=== PATIENT | male | born 1960 | race Caucasian/White ===

== ENCOUNTER → 2016-11-22 | Day surgery (SDC) | payer OTHER ==
[2016-11-08 15:26] VITALS: BMI 25.0
[~2016-11-22] VITALS: Ht 180.3 cm; Wt 86.0 kg
[~2016-11-22] MED LIST: ALLO300T2 PO; ATROPINE SULFATE 0.1 MG/ML 5ML SYR IV PRN; BUPIVACAINE/EPINEPHRINE 0.5% MPF 1:200,000 30 ML VIAL ONE; CEFAZOLIN 2000 MG/60 ML D5W IV SCH; CHOL1000 PO; DEXAMETHASONE SOD INJ 4 MG/ML VIAL ONE; DPRSCR15 TOP; DexMEDEtomidine HCL 100 MCG/ML 2ML VIAL IV ONE; EpHEDrine SULFATE 50MG/5ML SYR ONE; EpHEDrine SULFATE INJ 50 MG/ML AMP IV PRN; FENTANYL CITRATE INJ 50 MCG/1 ML 2 ML VIAL ONE; FLUMAZENIL 0.1 MG/1 ML 10 ML VIAL IV PRN; GABA800T PO; GLYCOPYRROLATE INJ 0.2 MG/ML VIAL ONE; KETOROLAC TROMETHAMINE 30 MG/ML VIAL IV. PRN; LABETALOL HCL IV 5 MG/ML 20ML IV PRN; LACT10SO17; LACTATED RINGER'S 1000ML 1,000 ML IV SCH; LIDOCAINE HCL 2% 2 ML VIAL (20MG/ML) ONE; LISI-725 PO; MEPERIDINE HCL 25 MG/ML CARP IV PRN; METOPROLOL TARTRATE 1 MG/ML VIAL ONE; MIDAZOLAM HCL 1 MG/ML 2ML VIAL ONE; NALOXONE HCL 0.4 MG/1 ML VIAL/CARP IV PRN; NEOSTIGMINE METHYLSULFATE 5 MG/5 ML SYR ONE; NURSING VERBAL MED ORDER ONE; ONDANSETRON INJ 2 MG/ML 2 ML VIAL IV PRN; ONDANSETRON INJ 2 MG/ML 2 ML VIAL ONE; OXYCODONE/ACETAMINOPHEN 5-325 TAB PO PRN; PARO1TAB27 PO; PHENYLEPHRINE 100MCG/ML 5ML SYR IV PRN; PRAV80TA2 PO; PRLSR20 PO; PROPOFOL IV EMULSION 10 MG/ML 20 ML VIAL IV ONE; ROCURONIUM BROMIDE 10 MG/ML 5 ML VIAL ONE; SODIUM CHLORIDE 0.9% 1000ML 1,000 ML IV SCH; SUCCINYLCHOLINE 100MG/5ML SYR IV ONE; TRMO2580 TOP
[2016-11-22 06:14] VITALS: BP 127/71; PULSE 67; TEMP 36.8; O2SAT 99; Ht 180.3 cm; Wt 86.0 kg
[2016-11-22 06:36] LABS: HEMATOCRIT 34.8 % (42-52); MEAN CELL VOLUME 102.1 fL (80-100); MEAN CORPUSCULAR HEMOGLOBIN 36.1 pg (25-34); MEAN CORPUSCULAR HGB CONC 35.3 g/dl (32-36); MEAN PLATELET VOLUME 10.6 fL (7.4-10.4); PLATELET COUNT 45 K/uL (130-400); PLT ESTIMATE SIGNIFIC DECREASED; RED BLOOD COUNT 3.41 M/uL (4.7-6.1); WHITE BLOOD COUNT 4.79 K/uL (4.8-10.8)
--- NOTE | 2016-11-22 07:03 | History and Physical ---
History & Physical Date Nov 22, 2016. Chief Complaint right breast swelling/tenderness. US/mammo show abnormality and bx rec History of Present Illness The patient is a 56 year old male with complaints of Additional History Hepatic Disease: No Endocrine Disorder: No Kidney Disease: No Hypertension: No Heart Disease: No Bleeding Tendencies: No Infectious Diseases: No Allergies Coded Allergies: Codeine (Verified Allergy, Unknown, Unknown, 11/22/16) Ibuprofen (Verified Allergy, Unknown, Unknown, 11/22/16) Tetanus Toxoid, Adsorbed (Verified Allergy, Unknown, Unknown, 11/22/16) Home Medications Scheduled Betamethasone Dip (Betamethasone Dipropionat), 1 APPLN TOP BID Gabapentin (Neurontin), 800 MG PO TID Lactulose (Chronulac), 15 ML DAILY Paroxetine (Paxil), 20 MG PO DAILY Scheduled PRN Triamcinolone Acetonide (Topic (Triamcinolone Acet 0.025%), 1 APPLN TOP DAILY PRN for Affected Skin Folds Physical Examination Skin: warm/dry Eyes: normal inspection, EOMI ENT: normal ENT inspection Head: normocephalic Neck: supple Respiratory/Chest: no respiratory distress Abdomen / GI: non tender Extremities: normal inspection Neurologic/Psych: alert, oriented x 3 Addiitonal Comments: tender nodule under right nipple. no drainage. no erythema Diagnosis gynecomastia-symptomatic Plan of Treatment discussed options/risks. rather than just bx will perform subcutaneous mastectomy. discussed risks. questions answered. ok to proceed
--- NOTE | 2016-11-22 07:06 | Discharge Instructions ---
Discharge Instructions Date of Service Nov 22, 2016. Admission Reason for Admission: Right Breast Mass Discharge Discharge Diagnosis / Problem: gynecomastia Discharge Goals Goal(s): Decrease discomfort, Diagnostic testing Activity Recommendations Activity Limitations: resume your previous activity Shower/Bathe: tomorrow . Instructions / Follow-Up Instructions / Follow-Up f/u dr. wolfe in 2 weeks. [phone] may use tylenol or ibuprofen for discomfort Current Hospital Diet Patient's current hospital diet: Discharge Diet Recommended Diet: Regular Diet Procedures Procedures Performed: right subcutaneous mastectomy Pending Studies Studies pending at discharge: yes List of pending studies: path report Medical Emergencies . Who to Call and When: Medical Emergencies: If at any time you feel your situation is an emergency, please call 911 immediately. . Non-Emergent Contact Non-Emergency issues call your: Primary Care Provider, Surgeon Call Non-Emergent contact if: temperature is above 101, wound has increased drainage, wound has increased redness, wound has increased pain . "Provider Documentation" section prepared by Juan Wolfe. VTE Core Measure Inpt VTE Proph given/why not?: SCD's
--- NOTE | 2016-11-22 07:59 | [facility] Operative Report ---
Operative Report Operative Date Nov 22, 2016. Pre-Operative Diagnosis Right breast mass Post-Operative Diagnosis same Procedure(s) Performed right subcutaneous mastectomy Surgeon Dr Wolfe Radiagraph Operator Surgeon(s) Rico Kirkland PA-C Estimated Blood Loss 5cc Findings small post areolar nodule, otherwise normal tissue Specimens A: Right subcutaneous breat tissue Anesthesia general Complication(s) None Disposition Recovery Room / PACU I attest to the content of the Intraoperative Record and any orders documented therein. Any exceptions are noted below.
--- NOTE | 2016-11-22 08:13 | OPERATIVE REPORT ---
DATE OF OPERATION: 11/22/2016 PREOPERATIVE DIAGNOSIS: Right breast pain and tenderness and abnormal ultrasound, suspect gynecomastia. POSTOPERATIVE DIAGNOSIS: Same. PROCEDURE: Right subcutaneous mastectomy. SURGEON: Dr. Wolfe. LAWNMOWER REPAIR MECHANIC: Bill Kirkland PA-C. ESTIMATED BLOOD LOSS: Approximately 5 mL COMPLICATIONS: No immediate. ANESTHESIA: General. The patient tolerated the procedure well. OPERATIVE NOTE: After informed consent was obtained, the patient was taken to the operating suite, placed in supine position. After successful intubation, the right breast area was sterilely prepped and draped in usual fashion. We began with a curvilinear infra-areolar incision. We carried this down through the soft tissue using electrocautery. We carried this down to the pectoralis muscle. We then made a skin flap underneath the nipple superiorly, trying to keep the flap rather large to prevent ischemia. We did encounter a nodule which I suspect what the patient was feeling and what the ultrasound was showing. We were able to incorporate that with the specimen. We took a disc of breast tissue from the retroareolar space the whole way down to the pectoralis fascia. We removed it with primarily electrocautery. We then passed off the specimen. We thoroughly irrigated the wound. There was adequate hemostasis at the end of the procedure. We closed the wound in several layers using 2-0 Vicryl for deep layers, 3-0 Vicryl for mid layers, and 4-0 Monocryl for skin. Marcaine with epinephrine was injected around the area for postoperative analgesia and a sterile dressing was applied. The patient was awakened, extubated, and transferred to recovery in stable condition. I attest to the content of the Intraoperative Record and any orders documented therein. Any exceptio ns are noted below.
[2016-11-22] MEDS: FENTANYL CITRATE INJ 50 MCG/1 ML 2 ML VIAL IV PRN ×4 (08:16→08:31)
--- NOTE | 2016-11-22 08:48 | Anesthesiology Progress Note ---
Anesthesia Post Op Note Date & Time Nov 22, 2016 at 08:49 Vital Signs Pain Intensity: 4 Vital Signs Past 12 Hours Date Time Temp Pulse Resp B/P Pulse Ox O2 Delivery O2 Flow Rate FiO2 11/22/16 08:35 101 16 141/90 99 Room Air 11/22/16 08:34 101 141/90 11/22/16 08:25 98 13 129/75 100 Mask 10 11/22/16 08:15 99 16 132/76 100 Mask 10 11/22/16 08:08 36.8 108 16 144/82 100 Mask 10 11/22/16 06:14 36.8 67 18 127/71 99 Room Air Notes Mental Status: alert / awake / arousable, participated in evaluation Pt Amnestic to Procedure: Yes Nausea / Vomiting: adequately controlled Pain: adequately controlled Airway Patency, RR, SpO2: stable & adequate BP & HR: stable & adequate Hydration State: stable & adequate Anesthetic Complications: no major complications apparent
[2016-11-22 08:55] VITALS: BP 125/70; PULSE 78; TEMP 36.6; O2SAT 98
--- NOTE | 2016-11-22 09:10 | Medical Student: [facility] ---
Immediate Operative Summary Operative Date Nov 22, 2016. Pre-Operative Diagnosis right breast mass Post-Operative Diagnosis same as above Procedure(s) Performed right subcutaneous mastectomy Surgeon Dr. Wolfe Quarter Seamer Surgeon(s) Rico Kirkland PA-C Estimated Blood Loss 5cc Findings post-areolar nodule Specimens A. right subcutaneous breast tissue Anesthesia general Complication(s) None Disposition Recovery Room / PACU
[2016-11-22 09:29] VITALS: BP 124/72; PULSE 78; O2SAT 98
[2016-11-22 10:02] VITALS: BP 115/71; PULSE 75; O2SAT 97
== END | disposition home or self-care (01) ==
LOC: C.ACU 05:45
PROVIDERS: ATTEND Surgery
DX: N62 Hypertrophy of breast (principal); Z88.5 Allergy status to narcotic agent; Z88.7 Allergy status to serum and vaccine

== ENCOUNTER → 2017-08-30 | Outpatient (CLI) | payer OTHER ==
[~2017-08-30] MED LIST changes: -ALLO300T2 PO; -ATROPINE SULFATE 0.1 MG/ML 5ML SYR IV PRN; +BUME1TAB PO; -BUPIVACAINE/EPINEPHRINE 0.5% MPF 1:200,000 30 ML VIAL ONE; -CEFAZOLIN 2000 MG/60 ML D5W IV SCH; -CHOL1000 PO; -DEXAMETHASONE SOD INJ 4 MG/ML VIAL ONE; -DexMEDEtomidine HCL 100 MCG/ML 2ML VIAL IV ONE; -EpHEDrine SULFATE 50MG/5ML SYR ONE; -EpHEDrine SULFATE INJ 50 MG/ML AMP IV PRN; -FENTANYL CITRATE INJ 50 MCG/1 ML 2 ML VIAL ONE; -FLUMAZENIL 0.1 MG/1 ML 10 ML VIAL IV PRN; -GLYCOPYRROLATE INJ 0.2 MG/ML VIAL ONE; -KETOROLAC TROMETHAMINE 30 MG/ML VIAL IV. PRN; -LABETALOL HCL IV 5 MG/ML 20ML IV PRN; -LACT10SO17; +LACT10SO3; +LACT10SO53 PO; -LACTATED RINGER'S 1000ML 1,000 ML IV SCH; -LIDOCAINE HCL 2% 2 ML VIAL (20MG/ML) ONE; -LISI-725 PO; +MCRK20 PO; -MEPERIDINE HCL 25 MG/ML CARP IV PRN; -METOPROLOL TARTRATE 1 MG/ML VIAL ONE; -MIDAZOLAM HCL 1 MG/ML 2ML VIAL ONE; -NALOXONE HCL 0.4 MG/1 ML VIAL/CARP IV PRN; -NEOSTIGMINE METHYLSULFATE 5 MG/5 ML SYR ONE; -NURSING VERBAL MED ORDER ONE; -ONDANSETRON INJ 2 MG/ML 2 ML VIAL IV PRN; -ONDANSETRON INJ 2 MG/ML 2 ML VIAL ONE; -OXYCODONE/ACETAMINOPHEN 5-325 TAB PO PRN; -PHENYLEPHRINE 100MCG/ML 5ML SYR IV PRN; -PRAV80TA2 PO; -PRLSR20 PO; -PROPOFOL IV EMULSION 10 MG/ML 20 ML VIAL IV ONE; -ROCURONIUM BROMIDE 10 MG/ML 5 ML VIAL ONE; -SODIUM CHLORIDE 0.9% 1000ML 1,000 ML IV SCH; -SUCCINYLCHOLINE 100MG/5ML SYR IV ONE
--- NOTE | 2017-08-30 12:51 | MAMMOGRAPHY REPORT ---
MALE BILATERAL DIGITAL DIAGNOSTIC MAMMOGRAM TOMOSYNTHESIS WITH CAD AND TARGETED BILATERAL ULTRASOUND: 08/30/2017 CLINICAL HISTORY: The patient reports a tender palpable lump behind the left nipple which has increas ed in size over the last 9 months. He underwent surgical excision of a right subareolar breast lump earlier this year which yielded benign pathology. He notes that the right breast lump feels decrease d although is still somewhat tender in this region at times. TECHNIQUE: Breast tomosynthesis in addition to standard 2D mammography was performed. Current study was also evaluated with a Computer Aided Detection (CAD) system. Bilateral CC and MLO 2-D and tomosy nthesis images were obtained. COMPARISON: Prior outside mammograms dated 08/01/2016 from [facility]. BREAST COMPOSITION: The tissue of both breasts is predominantly fatty. FINDINGS: A triangle marker lemus the site of the palpable lump in the left subareolar breast. Ther e is moderate fibro-glandular tissue seen within the left subareolar breast, increased compared to e July 2016 exam. A small amount of fibroglandular tissue is also seen within the right subareol ar breast which is also increased compared to the prior exam. Findings are compatible with gynecomas tia. No suspicious masses, calcifications, or areas of architectural distortion are noted. Targeted ultrasound was performed of the area of the palpable lump pointed out by the patient in the left subareolar breast. There is mixed echogenicity tissue seen within the left subareolar breast, w hich has the appearance of gynecomastia. Similar-appearing mixed echogenicity tissue is seen within the right subareolar breast. There are no suspicious masses or other suspicious sonographic abnormal ities in bilateral subareolar breasts. IMPRESSION: ACR BI-RADS CATEGORY 2: BENIGN, TARGETED ULTRASOUND ACR BI-RADS CATEGORY 2: BENIGN Bilateral gynecomastia, left side greater than right, increased compared to the July 2016 exam. The left-sided gynecomastia corresponds with the palpable lump pointed out by the patient. There is no mammographic or targeted sonographic evidence of malignancy. Recommend clinical follow-up as to a possible underlying cause. The patient has been verbally notified of the results. Approximately 10% of breast cancers are not detected with mammography. A negative mammographic report should not delay biopsy if a clinically suggestive mass is present. Trish Saravia M.D. ah/:08/30/2017 10:06:18 Night Warehouse Manager: Lucila BENTLEY(Alondra)(M), [facility] letter sent: Normal 1/2 BI-RADS Code: ACR BI-RADS Category 2: Benign Ultrasound BI-RADS: ACR BI-RADS Category 2: Benign
== END | disposition home or self-care (01) ==
LOC: C.MAMM 09:30
PROVIDERS: ATTEND Internal Medicine
DX: N62 Hypertrophy of breast (principal); N63.20 Unspecified lump in the left breast, unspecified quadrant

== ENCOUNTER 2018-04-28 12:34 | Emergency (ER) | payer OTHER ==
[~2018-04-28] VITALS: Ht 179.1 cm; Wt 112.0 kg
[~2018-04-28 12:34] MED LIST changes: -DPRSCR15 TOP; -LACT10SO3; -TRMO2580 TOP
[2018-04-28 12:37] VITALS: Ht 179.1 cm; Wt 112.0 kg
[2018-04-28 13:44] LABS: HEMATOCRIT 33.7 % (42-52); HEMOGLOBIN 11.5 g/dL (14.0-18.0); MEAN CELL VOLUME 108.4 fL (80-100); MEAN CORPUSCULAR HGB CONC 34.1 g/dl (32-36); RED CELL DISTRIBUTION WIDTH SD 62.4 fL (36.4-46.3); WHITE BLOOD COUNT 4.35 K/uL (4.8-10.8)
[2018-04-28 13:58] LABS: INR 1.5 (0.9-1.1)
[2018-04-28 14:08] LABS: ALBUMIN 2.2 gm/dl (3.4-5.0); CALCIUM 7.9 mg/dl (8.5-10.1); CREATININE 0.86 mg/dl (0.60-1.40); POTASSIUM 3.2 mmol/L (3.5-5.1)
[2018-04-28 14:10] LABS: TOTAL PROTEIN 7.4 gm/dl (6.4-8.2)
[2018-04-28 14:16] LABS: BASO % 0.5 %; BASO ABS # 0.02 K/uL (0-0.2); EOS % 2.3 %; IG# 0.01 K/uL (0.00-0.02); LYMPH % 17.2 %; LYMPH ABS # 0.75 K/uL (1.2-3.4); MEAN PLATELET VOLUME 10.1 fL (7.4-10.4); MONO % 14.9 %; MONO ABS # 0.65 K/uL (0.11-0.59); NEUT % 64.9 %; NEUT ABS # 2.82 K/uL (1.4-6.5); PLATELET COUNT 59 K/uL (130-400)
[2018-04-28] MEDS ORDERED: ALBUMIN HUMAN 25% 12.5 GM/50 ML VIAL IV ONE (16:00)
[2018-04-28 16:12] VITALS: TEMP 37
[2018-04-28] MEDS ORDERED: POTASSIUM CHLORIDE 10 MEQ TABCR PO STA (16:55)
[2018-04-28 17:00] VITALS: BP 104/54; PULSE 69; O2SAT 96
--- NOTE | 2018-04-28 20:04 | EMERGENCY ROOM VISIT NOTE ---
History Report prepared by Anilibjose carlos: Sue Adame Under the Supervision of: Jessica De JesusO. First contact with patient: 13:00 Chief Complaint: OTHER COMPLAINT Stated Complaint: FLUID History of Present Illness The patient is a 57 year old male who presents to the Emergency Room with complaints of worsening fluid retention that onset 3 week ago. He notes that he currently weighs 246 pounds, which is the most he has ever weighed. Patient admits to abdominal cramping as his abdomen has become more distended. He notes that it feels full and has felt nauseous throughout this. He also admits feeling slightly short of breath as his belly is encroaching on his chest. The patient denies chest pain and vomiting. The patient states that he has a history of liver failure secondary to cirrhosis due to chronic hepatits C infection. He states that he also has a herniated disc. The patient denies a history of heart failure. Source of History: patient Onset: 3 weeks ago Position: abdomen Quality: other (fluid retention) Associated Symptoms: + SOB, + nausea, No chest pain, No vomiting Note: The patient complains of cramps. Review of Systems See HPI for pertinent positives & negatives. A total of 10 systems reviewed and were otherwise negative. 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 Social History Smoking Status: Former Smoker Alcohol Use: none Drug Use: none Marital Status: single Housing Status: other Occupation Status: other Current/Historical Medications Scheduled Bumetanide (Bumex), 2 MG PO DAILY Gabapentin (Neurontin), 800 MG PO TID Paroxetine (Paxil), 20 MG PO DAILY Allergies Coded Allergies: Pork (Verified Allergy, Intermediate, SHORTNESS OF BREATH, 04/28/18) Due to judaism reason Codeine (Verified Allergy, Unknown, Unknown, 04/28/18) Ibuprofen (Verified Allergy, Unknown, Unknown, 04/28/18) Tetanus Toxoid, Adsorbed (Verified Allergy, Unknown, Unknown, 04/28/18) Physical Exam Vital Signs Date Time Temp Pulse Resp B/P (MAP) Pulse Ox O2 Delivery O2 Flow Rate FiO2 04/28/18 17:00 69 18 104/54 96 Room Air 04/28/18 16:31 91 18 109/51 96 Room Air 04/28/18 16:12 37.0 92 18 103/40 95 Room Air 04/28/18 13:29 86 04/28/18 12:37 36.6 92 20 139/89 95 Room Air Physical Exam GENERAL: Sitting up in bed, alert, chronically ill appearing, disheveled. EYE EXAM: normal conjunctiva. OROPHARYNX: no exudate, no erythema, lips, buccal mucosa, and tongue normal and mucous membranes are moist NECK: supple, no nuchal rigidity, no adenopathy, non-tender LUNGS: Clear to auscultation. Normal chest wall mechanics HEART: no murmurs, S1 normal and S2 normal ABDOMEN: abdomen distended and tympanic. Positive fluid wave, positive bowel sounds, no rebound or guarding detected. BACK: Back is symmetrical on inspection and there is no deformity, no midline tenderness, no CVA tenderness. SKIN: no rashes and no bruising UPPER EXTREMITIES: upper extremities are grossly normal. LOWER EXTREMITIES: pitting edema bilaterally. NEURO EXAM: Normal sensorium, cranial nerves II-XII grossly intact, normal speech, no gross weakness of arms, no gross weakness of legs. Medical Decision & Procedures Laboratory Results 04/28/18 13:33 Red Blood Count 3.11, Mean Corpuscular Volume 108.4, Mean Corpuscular Hemoglobin 37.0, Mean Corpuscular Hemoglobin Concent 34.1, Mean Platelet Volume 10.1, Neutrophils (%) (Auto) 64.9, Lymphocytes (%) (Auto) 17.2, Monocytes (%) ( Auto) 14.9, Eosinophils (%) (Auto) 2.3, Basophils (%) (Auto) 0.5, Neutrophils # (Auto) 2.82, Lymphocytes # (Auto) 0.75, Monocytes # (Auto) 0.65, Eosinophils # ( Auto) 0.10, Basophils # (Auto) 0.02 04/28/18 13:33 Test 04/28/18 13:33 04/28/18 14:25 04/28/18 15:25 White Blood Count 4.35 K/uL (4.8-10.8) Red Blood Count 3.11 M/uL (4.7-6.1) Hemoglobin 11.5 g/dL (14.0-18.0) Hematocrit 33.7 % (42-52) Mean Corpuscular Volume 108.4 fL (80-100) Mean Corpuscular Hemoglobin 37.0 pg (25-34) Mean Corpuscular Hemoglobin Concent 34.1 g/dl (32-36) Platelet Count 59 K/uL (130-400) Mean Platelet Volume 10.1 fL (7.4-10.4) Neutrophils (%) (Auto) 64.9 % Lymphocytes (%) (Auto) 17.2 % Monocytes (%) (Auto) 14.9 % Eosinophils (%) (Auto) 2.3 % Basophils (%) (Auto) 0.5 % Neutrophils # (Auto) 2.82 K/uL (1.4-6.5) Lymphocytes # (Auto) 0.75 K/uL (1.2-3.4) Monocytes # (Auto) 0.65 K/uL (0.11-0.59) Eosinophils # (Auto) 0.10 K/uL (0-0.5) Basophils # (Auto) 0.02 K/uL (0-0.2) RDW Standard Deviation 62.4 fL (36.4-46.3) RDW Coefficient of Variation 16.0 % (11.5-14.5) Immature Granulocyte % (Auto) 0.2 % Immature Granulocyte # (Auto) 0.01 K/uL (0.00-0.02) Platelet Estimate DECREASED Prothrombin Time 15.4 SECONDS (9.0-12.0) Prothromb Time International Ratio 1.5 (0.9-1.1) Anion Gap 7.0 mmol/L (3-11) Est Creatinine Clear Calc Drug Dose 122.6 ml/min Estimated GFR () 113.1 Estimated GFR (Non- 97.6 BUN/Creatinine Ratio 10.4 (10-20) Calcium Level 7.9 mg/dl (8.5-10.1) Total Bilirubin 6.8 mg/dl (0.2-1) Direct Bilirubin 2.4 mg/dl (0-0.2) Aspartate Amino Transf (AST/SGOT) 62 U/L (15-37) Alanine Aminotransferase (ALT/SGPT) 27 U/L (12-78) Alkaline Phosphatase 150 U/L (45-117) Total Protein 7.4 gm/dl (6.4-8.2) Albumin 2.2 gm/dl (3.4-5.0) Lipase 171 U/L (73-393) Urine Color ORANGE Urine Appearance CLOUDY (CLEAR) Urine pH 5.5 (4.5-7.5) Urine Specific [place] 1.020 (1.000-1.030) Urine Protein 1+ (NEG) Urine Glucose (UA) NEG (NEG) Urine Ketones TRACE (NEG) Urine Occult Blood 2+ (NEG) Urine Nitrite POS (NEG) Urine Bilirubin 1+ (NEG) Urine Urobilinogen POS (NEG) Urine Leukocyte Esterase LARGE (NEG) Urine WBC (Auto) >30 /hpf (0-5) Urine RBC (Auto) 10-30 /hpf (0-4) Urine Hyaline Casts (Auto) 5-10 /lpf (0-5) Urine Epithelial Cells (Auto) >30 /lpf (0-5) Urine Bacteria (Auto) 1+ (NEG) Urine Yeast (Auto) (NONE PRSENT) Peritoneal Fluid Color YELLOW Peritoneal Fluid Appearance CLEAR Peritoneal Fluid WBC 134 /uL (0-300) Peritoneal Fluid RBC < 3000 /uL Peritoneal Fld Mononuclear WBCs (%) 86.9 % Peritoneal Fld Polynuclear WBCs (%) 13.1 % Peritoneal Fluid Total Protein 0.8 g/dl Peritoneal Fluid Albumin < 0.6 g/dl Laboratory results per my review. Medications Administered Medications (Trade) Dose Ordered Sig/Amy Route Start Time Stop Time Status Last Admin Dose Admin Albumin Human (Albumin 25%) 50 gm ONE ONCE IV 04/28/18 16:00 04/28/18 16:01 DC 04/28/18 16:00 50 GM Potassium Chloride (Klor-Con M10) 40 meq NOW STAT PO 04/28/18 16:55 04/28/18 16:56 DC 04/28/18 16:55 40 MEQ Procedure Paracentesis: Verbal consent obtained. The abdomen was prepped with the standard technique. The skin was infiltrated with 1% lidocaine. The paracentesis catheter was inserted in the standard fashion under sterile technique. 5 bottles of straw colored fluid obtained without difficulty. Pt. tolerated the procedure. Sterile dressing applied. No complications. ECG Per My Interpretation Indication: abdominal pain Rate (beats per minute): 88 Rhythm: sinus rhythm Findings: other (normal axis, no PVC, non specific ST in the high lateral.) Change: no significant change Change: No change from 03/10/18. ED Course ED COURSE: Vital signs were reviewed and showed that they were normal. The patients medical record was reviewed The above diagnostic studies were performed and reviewed. While in the ED, the patient received Albumin 25 % 50 mg IV and Potassium Chloride 40 meq PO. ED treatments and interventions as stated above. 1334: The patient was evaluated in room C11. A complete history and physical examination was performed. 1419: I reviewed the patient's case with Haile Armstrong- Gastroenterology. He said that the patient can get tapped and then sent home with Albumin Human 50 mg IV. 1500: I performed a paracentetics procedure. 1530: The procedure is ongoing. 1703: Upon reevaluation, the patient is resting comfortably. I discussed my findings with the patient and he understands and agrees with the treatment plan. Based on the patients age, coexisting illnesses, exam and lab findings the decision to treat as an outpatient was made. The patient remained stable while under my care. The patient appeared well at the time of discharge. Medical Decision Differential diagnoses includes but is not limited to gastritis, peptic ulcer disease, GERD, gallbladder disease, pancreatitis, small bowel obstruction, acute coronary syndrome, pericarditis, ischemic bowel, irritable bowel disease, irritable bowel syndrome, appendicitis, diverticulitis, malignancy, hernia, urinary tract infection, torsion, [/ectopic (if female)], perforation, trauma, infectious. Patient is a 57-year-old male with a recent admission is a history of hepatitis C and liver failure. He was seen by GI previously Dr. Love and had elevated bilirubin of six to 7. INR was elevated at 1.5. Today he presents noting that his abdomen is soft, more distended. CBC was fairly unremarkable. BMP with mild hypokalemia. Bilirubin was elevated at 6.8 consistent with previous. LFTs were otherwise normal. Lipase was normal. INR was 1.5 which is consistent with his previous as well. No urinary symptoms. Bedside ultrasound performed by myself confirms a large amount of abdominal ascites. I did perform a paracentesis. 5 L were removed after discussion with GI Dr. Haile Armstrong. Patient was given 50 g of albumin per GIs request. GI did recommend having him follow-up as an outpatient. I felt this was reasonable. Patient was feeling significantly better. Discussed with Pt concerning signs and symptoms to watch out for. Pt was instructed to follow up with their PCP and discussed with the patient their option to return to the ED at anytime for persistent or worsening symptoms. The appropriate anticipatory guidance and out- patient management, including indications for return to the emergency department , were explained at length to the patient and understood. Medication Reconcilliation Current Medication List: was personally reviewed by me Blood Pressure Screening Patient's blood pressure: Normal blood pressure Consults Time Called: 1418 Consulting Physician: [facility]. Returned Call: [phone]: I reviewed the patient's case with [facility]. He said that the patient can get tapped and then sent home with Albumin Human 50 mg IV. 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 I confirm that the note above accurately reflects all work, treatment, procedures, and medical decision making performed by me. Departure Information Dispostion Home / Self-Care Referrals Hong MERCHANT (PCP) Forms HOME CARE DOCUMENTATION FORM, IMPORTANT VISIT INFORMATION, WORK / SCHOOL INSTRUCTIONS Patient Instructions [facility] Additional Instructions Please follow up with your primary care doctor with in the next 24 hours. Any worsening of your symptoms, please return to the ED immediately. This includes any fevers greater than 100.4, worsening pain, chest pain, shortness breath, persistent nausea, vomiting, unable to eat or drink, or any other concerning signs or symptoms from your standpoint. Please make sure that he follow-up with gastroenterology and give them a call first thing tomorrow morning to schedule appointment. Problem Qualifiers
--- NOTE | 2018-04-30 16:19 | Pharmacy Progress Note ---
ED Pharmacist Culture FollowUp Date of Service: Apr 30, 2018. Patient's urine culture growing coag negative staph resistant to oxacillin. Patient's reason for visiting was worsening fluid retention/abdominal cramping, paracentesis was performed and primary impression was ascites. No urinary symptoms documented, UA WBC >30, Epi >30. Discussed w/ Dr. Lopes, no treatment at this time.
== END 2018-04-28 17:50 | disposition home or self-care (01) ==
LOC: C.EDB 12:35 → C.EDC 17:50
DX: B17.9 Acute viral hepatitis, unspecified (principal); K71.51 Toxic liver disease with chronic active hepatitis with ascites; E87.6 Hypokalemia; B18.2 Chronic viral hepatitis C; Z87.891 Personal history of nicotine dependence; Z79.899 Other long term (current) drug therapy; Z88.5 Allergy status to narcotic agent; Z88.6 Allergy status to analgesic agent; Z88.7 Allergy status to serum and vaccine; Z91.018 Allergy to other foods

== ENCOUNTER 2018-08-06 18:37 | Inpatient (IN) ==
[2018-08-06 19:30] LABS: Hematocrit (blood only) 27.6 % (42-52); Hemoglobin 9.4 g/dL (14.0-18.0); Mean Corpuscular Hgb Conc 34.1 g/dL (32-36); Mean Corpuscular Volume 107.4 fL (80-100); RDW Coefficient of Variation 15.6 % (11.5-14.5); RDW Standard Deviation 61.8 fL (36.4-46.3); Red Blood Count 2.57 M/uL (4.7-6.1); White Blood Count 4.78 K/uL (4.8-10.8)
[2018-08-06 19:38] LABS: Base Excess VBG 9.2 mEq/L; Oxygen Saturation VBG 75.6 %; pH VBG 7.49 (7.36-7.41)
[2018-08-06 19:41] LABS: Platelet Count 45 K/uL (130-400)
[2018-08-06 19:45] LABS: INR 1.5 (0.9-1.1); Partial Thromboplastin Ratio 1.3; Partial Thromboplastin Time 33.9 Seconds (21.0-31.0); Prothrombin Time 16.1 Seconds (9.0-12.0)
[2018-08-06 19:55] LABS: Appearance Urine Clear (Clear); Bacteria Urine Automated Negative (Negative); Bilirubin Urine Negative (Negative); Color Urine Dark Yellow; Glucose Urine UA Negative (Negative); Ketones Urine Negative (Negative); Leukocyte Esterase Urine Trace (Negative); Nitrite Urine Negative (Negative); Protein Urine Negative (Negative); Specific Gravity Urine 1.009 (1.000-1.030); Urobilinogen Urine Negative (Negative)
[2018-08-06 19:57] LABS: Alanine Aminotransferase 23 U/L (12-78); Albumin Globulin Ratio 0.7 (0.9-2); Albumin Level 2.7 gm/dl (3.4-5.0); Alkaline Phosphatase 127 U/L (45-117); Aspartate Aminotransferase 53 U/L (15-37); BUN Creatinine Ratio 11.9 (10-20); Bilirubin Direct 2.6 mg/dl (0-0.2); Bilirubin,Total 8.3 mg/dl (0.1-1); Blood Urea Nitrogen 13 mg/dl (7-18); Calcium 8.2 mg/dl (8.5-10.1); Carbon Dioxide 30 mmol/L (21-32); Chloride 94 mmol/L (98-107); Creatinine Clr Calc Pharmacy 82.3 ml/min; Est GFR (African American) 89.1; Est GFR (Non-African American) 76.9; Globulin 3.9 gm/dl (2.5-4.0); Glucose 98 mg/dl (70-99); Magnesium 1.7 mg/dl (1.8-2.4); Phosphorus 1.9 mg/dl (2.5-4.9); Potassium 2.6 mmol/L (3.5-5.1); Sodium 133 mmol/L (136-145); Total Protein 6.6 gm/dl (6.4-8.2); Troponin I < 0.015 ng/ml (0-0.045)
[2018-08-06 20:03] LABS: Calcium Oxalate Crystals Urine Present (None Prsent)
[2018-08-06 20:05] LABS: Basophils # (auto) 0.01 K/uL (0-0.2); Basophils % (auto) 0.2 %; Eosinophils # (auto) 0.05 K/uL (0-0.5); Immature Granulocytes # (auto) 0.01 K/uL (0.00-0.02); Immature Granulocytes % (auto) 0.2 %; Lymphocytes # (auto) 0.11 K/uL (1.2-3.4); Lymphocytes % (auto) 2.3 %; Monocytes # (auto) 0.09 K/uL (0.11-0.59); Monocytes % (auto) 1.9 %; Neutrophils # (auto) 4.51 K/uL (1.4-6.5); Neutrophils % (auto) 94.4 %
[2018-08-06 20:10] LABS: Influenza A virus by PCR Neg for Influ A (Neg); Influenza B virus by PCR Neg for Influ B (Neg)
[2018-08-06 23:14] LABS: Mononuclear WBC Peritoneal 95.6 %; Polynuclear WBC Peritoneal 4.4 %; RBC Peritoneal Fluid (A) < 3000 /uL; WBC Peritoneal Fluid (A) 109 /ul (0-300)
[2018-08-07 04:47] LABS: Mean Corpuscular Hgb Conc 33.3 g/dL (32-36); Mean Corpuscular Volume 108.6 fL (80-100); RDW Standard Deviation 62.7 fL (36.4-46.3); Red Blood Count 2.21 M/uL (4.7-6.1); White Blood Count 9.52 K/uL (4.8-10.8)
[2018-08-07 04:49] LABS: Platelet Count 32 K/uL (130-400)
[2018-08-07 05:08] LABS: INR 1.8 (0.9-1.1); Partial Thromboplastin Ratio 1.8; Prothrombin Time 18.5 Seconds (9.0-12.0)
[2018-08-07 05:22] LABS: Albumin Level 2.8 gm/dl (3.4-5.0); Basophils # (auto) 0.01 K/uL (0-0.2); Basophils % (auto) 0.1 %; Bilirubin,Total 8.5 mg/dl (0.1-1); Eosinophils # (auto) 0.01 K/uL (0-0.5); Eosinophils % (auto) 0.1 %; Immature Granulocytes # (auto) 0.08 K/uL (0.00-0.02); Immature Granulocytes % (auto) 0.8 %; Lymphocytes # (auto) 0.53 K/uL (1.2-3.4); Lymphocytes % (auto) 5.6 %; Magnesium 1.9 mg/dl (1.8-2.4); Monocytes # (auto) 0.78 K/uL (0.11-0.59); Monocytes % (auto) 8.2 %; Neutrophils # (auto) 8.11 K/uL (1.4-6.5); Neutrophils % (auto) 85.2 %; Partial Thromboplastin Time 47.4 Seconds (21.0-31.0); Phosphorus 3.1 mg/dl (2.5-4.9); RBC Morphology Unremarkable; Total Protein 6.1 gm/dl (6.4-8.2)
[2018-08-07 05:54] LABS: BUN Creatinine Ratio 11.8 (10-20); Calcium 7.7 mg/dl (8.5-10.1); Creatinine Clr Calc Pharmacy 56.7 ml/min; Est GFR (Non-African American) 45.7; Potassium 2.7 mmol/L (3.5-5.1)
[2018-08-08 05:15] LABS: Hematocrit (blood only) 24.9 % (42-52); Hemoglobin 8.4 g/dL (14.0-18.0); Mean Corpuscular Hgb Conc 33.7 g/dL (32-36); Mean Corpuscular Volume 108.7 fL (80-100); RDW Coefficient of Variation 15.6 % (11.5-14.5); Red Blood Count 2.29 M/uL (4.7-6.1); White Blood Count 11.21 K/uL (4.8-10.8)
[2018-08-08 05:18] LABS: Mean Platelet Volume 10.1 fL (7.4-10.4); Platelet Count 43 K/uL (130-400)
[2018-08-08 05:37] LABS: INR 1.9 (0.9-1.1); Prothrombin Time 19.6 Seconds (9.0-12.0)
[2018-08-08 05:42] LABS: Basophils # (auto) 0.03 K/uL (0-0.2); Basophils % (auto) 0.3 %; Dohle Bodies Occasional; Eosinophils # (auto) 0.38 K/uL (0-0.5); Eosinophils % (auto) 3.4 %; Immature Granulocytes # (auto) 0.04 K/uL (0.00-0.02); Immature Granulocytes % (auto) 0.4 %; Lymphocytes # (auto) 0.52 K/uL (1.2-3.4); Lymphocytes % (auto) 4.6 %; Monocytes # (auto) 0.73 K/uL (0.11-0.59); Monocytes % (auto) 6.5 %; Neutrophils # (auto) 9.51 K/uL (1.4-6.5); Neutrophils % (auto) 84.8 %
[2018-08-08 05:44] LABS: Partial Thromboplastin Time 52.5 Seconds (21.0-31.0)
[2018-08-08 05:48] LABS: Albumin Globulin Ratio 0.8 (0.9-2); Albumin Level 2.7 gm/dl (3.4-5.0); BUN Creatinine Ratio 18.8 (10-20); Bilirubin Direct 2.1 mg/dl (0-0.2); Calcium 7.7 mg/dl (8.5-10.1); Creatinine Clr Calc Pharmacy 72.6 ml/min; Est GFR (African American) 70.5; Est GFR (Non-African American) 60.9; Globulin 3.3 gm/dl (2.5-4.0); Magnesium 1.9 mg/dl (1.8-2.4); Potassium 2.9 mmol/L (3.5-5.1)
[2018-08-08 21:05] LABS: BUN Creatinine Ratio 18.3 (10-20); Creatinine Clr Calc Pharmacy 74.6 ml/min; Est GFR (African American) 73.9; Est GFR (Non-African American) 63.8; Magnesium 2.1 mg/dl (1.8-2.4); Phosphorus 2.3 mg/dl (2.5-4.9); Potassium 3.7 mmol/L (3.5-5.1)
[2018-08-09 08:07] LABS: Hematocrit (blood only) 23.5 % (42-52); Hemoglobin 7.9 g/dL (14.0-18.0); Mean Corpuscular Hgb Conc 33.6 g/dL (32-36); Mean Corpuscular Volume 109.8 fL (80-100); RDW Coefficient of Variation 15.6 % (11.5-14.5); RDW Standard Deviation 62.2 fL (36.4-46.3); Red Blood Count 2.14 M/uL (4.7-6.1); White Blood Count 6.47 K/uL (4.8-10.8)
[2018-08-09 08:23] LABS: INR 1.7 (0.9-1.1); Partial Thromboplastin Ratio 1.8; Prothrombin Time 17.2 Seconds (9.0-12.0)
[2018-08-09 08:36] LABS: Albumin Level 2.9 gm/dl (3.4-5.0); Bilirubin Direct 2.2 mg/dl (0-0.2); Bilirubin,Total 5.9 mg/dl (0.1-1); Mean Platelet Volume 10.1 fL (7.4-10.4); Platelet Count 34 K/uL (130-400); Total Protein 6.2 gm/dl (6.4-8.2)
[2018-08-09 08:39] LABS: Basophils # (auto) 0.04 K/uL (0-0.2); Basophils % (auto) 0.6 %; Eosinophils # (auto) 0.45 K/uL (0-0.5); Immature Granulocytes # (auto) 0.02 K/uL (0.00-0.02); Immature Granulocytes % (auto) 0.3 %; Lymphocytes # (auto) 0.49 K/uL (1.2-3.4); Lymphocytes % (auto) 7.6 %; Macrocytosis Present; Monocytes # (auto) 0.69 K/uL (0.11-0.59); Monocytes % (auto) 10.7 %; Neutrophils # (auto) 4.78 K/uL (1.4-6.5); Neutrophils % (auto) 73.8 %
[2018-08-09 09:28] LABS: Partial Thromboplastin Time 47.6 Seconds (21.0-31.0)
[2018-08-10 03:52] LABS: Hematocrit (blood only) 24.9 % (42-52); Hemoglobin 8.8 g/dL (14.0-18.0); Mean Corpuscular Hgb Conc 35.3 g/dL (32-36); Mean Corpuscular Volume 109.2 fL (80-100); RDW Coefficient of Variation 15.5 % (11.5-14.5); RDW Standard Deviation 61.1 fL (36.4-46.3); Red Blood Count 2.28 M/uL (4.7-6.1); White Blood Count 6.54 K/uL (4.8-10.8)
[2018-08-10 04:00] LABS: INR 1.6 (0.9-1.1); Prothrombin Time 16.5 Seconds (9.0-12.0)
[2018-08-10 04:04] LABS: Mean Platelet Volume 10.1 fL (7.4-10.4); Platelet Count 43 K/uL (130-400)
[2018-08-10 04:14] LABS: Albumin Globulin Ratio 0.9 (0.9-2); Albumin Level 3.2 gm/dl (3.4-5.0); BUN Creatinine Ratio 15.5 (10-20); Bilirubin,Total 6.3 mg/dl (0.1-1); Calcium 7.9 mg/dl (8.5-10.1); Est GFR (African American) 79.2; Est GFR (Non-African American) 68.4; Globulin 3.5 gm/dl (2.5-4.0); Potassium 3.3 mmol/L (3.5-5.1); Total Protein 6.7 gm/dl (6.4-8.2)
[2018-08-10 04:48] LABS: Basophils # (auto) 0.03 K/uL (0-0.2); Basophils % (auto) 0.5 %; Dohle Bodies 1+; Eosinophils # (auto) 0.43 K/uL (0-0.5); Eosinophils % (auto) 6.6 %; Immature Granulocytes # (auto) 0.04 K/uL (0.00-0.02); Immature Granulocytes % (auto) 0.6 %; Lymphocytes # (auto) 0.72 K/uL (1.2-3.4); Macrocytosis Present; Monocytes # (auto) 0.82 K/uL (0.11-0.59); Monocytes % (auto) 12.5 %; Neutrophils % (auto) 68.8 %; Polychromasia 1+; Toxic Vacuolation 1+
[2018-08-11 07:15] LABS: Hematocrit (blood only) 26.1 % (42-52); Hemoglobin 8.9 g/dL (14.0-18.0); Mean Corpuscular Hgb Conc 34.1 g/dL (32-36); Mean Corpuscular Volume 108.8 fL (80-100); RDW Coefficient of Variation 15.8 % (11.5-14.5); RDW Standard Deviation 62.8 fL (36.4-46.3); White Blood Count 6.74 K/uL (4.8-10.8)
[2018-08-11 07:28] LABS: INR 1.6 (0.9-1.1); Prothrombin Time 16.3 Seconds (9.0-12.0)
[2018-08-11 07:52] LABS: Mean Platelet Volume 10.2 fL (7.4-10.4); Platelet Count 48 K/uL (130-400)
[2018-08-11 07:54] LABS: Basophils # (auto) 0.04 K/uL (0-0.2); Basophils % (auto) 0.6 %; Eosinophils # (auto) 0.39 K/uL (0-0.5); Eosinophils % (auto) 5.8 %; Immature Granulocytes # (auto) 0.13 K/uL (0.00-0.02); Immature Granulocytes % (auto) 1.9 %; Lymphocytes # (auto) 0.77 K/uL (1.2-3.4); Lymphocytes % (auto) 11.4 %; Monocytes # (auto) 1.29 K/uL (0.11-0.59); Monocytes % (auto) 19.1 %; Neutrophils # (auto) 4.12 K/uL (1.4-6.5); Neutrophils % (auto) 61.2 %; RBC Morphology Unremarkable
[2018-08-11 08:08] LABS: Albumin Globulin Ratio 0.9 (0.9-2); Albumin Level 3.2 gm/dl (3.4-5.0); BUN Creatinine Ratio 17.1 (10-20); Bilirubin,Total 6.4 mg/dl (0.1-1); Creatinine Clr Calc Pharmacy 83.9 ml/min; Est GFR (African American) 85.3; Est GFR (Non-African American) 73.6; Globulin 3.4 gm/dl (2.5-4.0); Potassium 3.1 mmol/L (3.5-5.1); Total Protein 6.6 gm/dl (6.4-8.2)
[2018-08-12 09:06] LABS: Hematocrit (blood only) 26.8 % (42-52); Hemoglobin 9.1 g/dL (14.0-18.0); Mean Corpuscular Volume 108.9 fL (80-100); RDW Coefficient of Variation 16.1 % (11.5-14.5); RDW Standard Deviation 61.9 fL (36.4-46.3); Red Blood Count 2.46 M/uL (4.7-6.1); White Blood Count 6.53 K/uL (4.8-10.8)
[2018-08-12 09:07] LABS: Mean Platelet Volume 9.7 fL (7.4-10.4); Platelet Count 53 K/uL (130-400)
[2018-08-12 09:33] LABS: Albumin Level 3.2 gm/dl (3.4-5.0); BUN Creatinine Ratio 15.1 (10-20); Creatinine Clr Calc Pharmacy 85.5 ml/min; Est GFR (African American) 84.3; Est GFR (Non-African American) 72.8; Potassium 3.6 mmol/L (3.5-5.1)
[2018-08-12 09:39] LABS: Albumin Globulin Ratio 0.8 (0.9-2); Bilirubin,Total 6.1 mg/dl (0.1-1); Globulin 3.8 gm/dl (2.5-4.0)
[2018-08-13 07:19] LABS: Hematocrit (blood only) 25.9 % (42-52); Hemoglobin 8.9 g/dL (14.0-18.0); Mean Corpuscular Hgb Conc 34.4 g/dL (32-36); Mean Corpuscular Volume 109.7 fL (80-100); RDW Coefficient of Variation 16.8 % (11.5-14.5); Red Blood Count 2.36 M/uL (4.7-6.1); White Blood Count 5.71 K/uL (4.8-10.8)
[2018-08-13 07:38] LABS: Mean Platelet Volume 10.3 fL (7.4-10.4); Platelet Count 57 K/uL (130-400)
[2018-08-13 07:57] LABS: Albumin Globulin Ratio 0.8 (0.9-2); Albumin Level 3.2 gm/dl (3.4-5.0); BUN Creatinine Ratio 16.2 (10-20); Bilirubin,Total 6.2 mg/dl (0.1-1); Calcium 8.2 mg/dl (8.5-10.1); Creatinine Clr Calc Pharmacy 92.9 ml/min; Est GFR (African American) 91.1; Est GFR (Non-African American) 78.6; Globulin 3.9 gm/dl (2.5-4.0); Potassium 3.2 mmol/L (3.5-5.1); Total Protein 7.1 gm/dl (6.4-8.2)
[2018-08-15 08:22] LABS: Hematocrit (blood only) 23.6 % (42-52); Mean Corpuscular Hgb Conc 33.9 g/dL (32-36); Mean Corpuscular Volume 109.3 fL (80-100); RDW Coefficient of Variation 16.9 % (11.5-14.5); RDW Standard Deviation 66.5 fL (36.4-46.3); Red Blood Count 2.16 M/uL (4.7-6.1); White Blood Count 4.45 K/uL (4.8-10.8)
[2018-08-15 08:53] LABS: Mean Platelet Volume 9.6 fL (7.4-10.4); Platelet Count 46 K/uL (130-400)
[2018-08-15 08:54] LABS: Basophils # (auto) 0.03 K/uL (0-0.2); Basophils % (auto) 0.7 %; Eosinophils # (auto) 0.16 K/uL (0-0.5); Eosinophils % (auto) 3.6 %; Immature Granulocytes # (auto) 0.04 K/uL (0.00-0.02); Immature Granulocytes % (auto) 0.9 %; Lymphocytes # (auto) 0.67 K/uL (1.2-3.4); Lymphocytes % (auto) 15.1 %; Monocytes # (auto) 0.42 K/uL (0.11-0.59); Monocytes % (auto) 9.4 %; Neutrophils # (auto) 3.13 K/uL (1.4-6.5); Neutrophils % (auto) 70.3 %; RBC Morphology Unremarkable
[2018-08-15 09:02] LABS: Albumin Globulin Ratio 0.8 (0.9-2); Bilirubin,Total 6.1 mg/dl (0.1-1); Calcium 8.3 mg/dl (8.5-10.1); Creatinine Clr Calc Pharmacy 87.4 ml/min; Est GFR (African American) 87.1; Est GFR (Non-African American) 75.2; Globulin 3.6 gm/dl (2.5-4.0); Potassium 2.6 mmol/L (3.5-5.1); Total Protein 6.6 gm/dl (6.4-8.2)
[2018-08-16 07:53] LABS: Hematocrit (blood only) 24.1 % (42-52); Hemoglobin 8.3 g/dL (14.0-18.0); Mean Corpuscular Hgb Conc 34.4 g/dL (32-36); Mean Corpuscular Volume 109.5 fL (80-100); RDW Standard Deviation 67.2 fL (36.4-46.3); White Blood Count 5.62 K/uL (4.8-10.8)
[2018-08-16 07:56] LABS: Mean Platelet Volume 9.8 fL (7.4-10.4); Platelet Count 53 K/uL (130-400)
[2018-08-16 08:00] LABS: INR 1.7 (0.9-1.1); Prothrombin Time 16.2 Seconds (9.0-12.0)
[2018-08-16 08:34] LABS: Albumin Globulin Ratio 0.8 (0.9-2); BUN Creatinine Ratio 15.6 (10-20); Bilirubin,Total 5.6 mg/dl (0.1-1); Calcium 8.4 mg/dl (8.5-10.1); Creatinine Clr Calc Pharmacy 89.1 ml/min; Est GFR (African American) 89.1; Est GFR (Non-African American) 76.9; Globulin 3.7 gm/dl (2.5-4.0); Potassium 2.6 mmol/L (3.5-5.1); Total Protein 6.7 gm/dl (6.4-8.2)
[2018-08-16 14:20] LABS: BUN Creatinine Ratio 13.7 (10-20); Calcium 8.6 mg/dl (8.5-10.1); Creatinine Clr Calc Pharmacy 81.5 ml/min; Est GFR (Non-African American) 69.1; Potassium 2.8 mmol/L (3.5-5.1)
[2018-08-17 06:47] LABS: Hematocrit (blood only) 23.5 % (42-52); Mean Corpuscular Volume 110.8 fL (80-100); RDW Coefficient of Variation 17.2 % (11.5-14.5); RDW Standard Deviation 68.5 fL (36.4-46.3); Red Blood Count 2.12 M/uL (4.7-6.1); White Blood Count 5.37 K/uL (4.8-10.8)
[2018-08-17 06:54] LABS: Mean Platelet Volume 9.8 fL (7.4-10.4); Platelet Count 51 K/uL (130-400)
[2018-08-17 07:12] LABS: INR 1.6 (0.9-1.1); Prothrombin Time 16.1 Seconds (9.0-12.0)
[2018-08-17 07:22] LABS: Albumin Level 2.8 gm/dl (3.4-5.0); BUN Creatinine Ratio 15.3 (10-20); Bilirubin Direct 1.8 mg/dl (0-0.2); Bilirubin,Total 5.2 mg/dl (0.1-1); Calcium 8.3 mg/dl (8.5-10.1); Creatinine Clr Calc Pharmacy 89.9 ml/min; Est GFR (African American) 90.1; Est GFR (Non-African American) 77.7; Total Protein 6.6 gm/dl (6.4-8.2)
[2018-08-17 07:35] LABS: Anisocytosis Present; Basophils # (auto) 0.03 K/uL (0-0.2); Basophils % (auto) 0.6 %; Eosinophils # (auto) 0.13 K/uL (0-0.5); Eosinophils % (auto) 2.4 %; Immature Granulocytes # (auto) 0.04 K/uL (0.00-0.02); Immature Granulocytes % (auto) 0.7 %; Lymphocytes # (auto) 0.62 K/uL (1.2-3.4); Lymphocytes % (auto) 11.5 %; Macrocytosis Present; Monocytes # (auto) 0.66 K/uL (0.11-0.59); Monocytes % (auto) 12.3 %; Neutrophils # (auto) 3.89 K/uL (1.4-6.5); Neutrophils % (auto) 72.5 %
[2018-08-18 08:46] LABS: Hematocrit (blood only) 26.7 % (42-52); Hemoglobin 8.9 g/dL (14.0-18.0); Mean Corpuscular Hgb Conc 33.3 g/dL (32-36); Mean Corpuscular Volume 112.2 fL (80-100); RDW Coefficient of Variation 17.7 % (11.5-14.5); RDW Standard Deviation 72.1 fL (36.4-46.3); Red Blood Count 2.38 M/uL (4.7-6.1); White Blood Count 7.69 K/uL (4.8-10.8)
[2018-08-18 09:04] LABS: Platelet Count 60 K/uL (130-400)
[2018-08-18 09:30] LABS: BUN Creatinine Ratio 14.4 (10-20); Calcium 8.7 mg/dl (8.5-10.1); Creatinine Clr Calc Pharmacy 75.1 ml/min; Est GFR (African American) 72.5; Est GFR (Non-African American) 62.6; Potassium 3.8 mmol/L (3.5-5.1)
[2018-08-19 06:19] LABS: Hematocrit (blood only) 24.1 % (42-52); Hemoglobin 8.1 g/dL (14.0-18.0); Mean Corpuscular Hgb Conc 33.6 g/dL (32-36); Mean Corpuscular Volume 113.1 fL (80-100); RDW Coefficient of Variation 17.9 % (11.5-14.5); RDW Standard Deviation 71.6 fL (36.4-46.3); Red Blood Count 2.13 M/uL (4.7-6.1)
[2018-08-19 06:20] LABS: Mean Platelet Volume 10.3 fL (7.4-10.4); Platelet Count 53 K/uL (130-400)
[2018-08-19 06:54] LABS: BUN Creatinine Ratio 15.6 (10-20); Calcium 8.5 mg/dl (8.5-10.1); Creatinine Clr Calc Pharmacy 71.3 ml/min; Est GFR (Non-African American) 58.7; Potassium 4.4 mmol/L (3.5-5.1)
[2018-08-19 06:58] LABS: Albumin Globulin Ratio 0.8 (0.9-2); Bilirubin,Total 7.3 mg/dl (0.1-1); Globulin 3.9 gm/dl (2.5-4.0); Total Protein 6.9 gm/dl (6.4-8.2)
== END 2018-08-19 19:15 ==
LOC: ED 18:37 → 1E 23:38 → SUATTDRO 23:38 → 1E 08-07 00:38 → 2W 08-08 20:03

== ENCOUNTER 2018-10-26 19:11 | Inpatient (IN) ==
[2018-10-26 20:01] LABS: Hemoglobin 9.8 g/dL (14.0-18.0); Mean Corpuscular Hgb Conc 33.8 g/dL (32-36); Mean Corpuscular Volume 105.8 fL (80-100); RDW Standard Deviation 65.7 fL (36.4-46.3); Red Blood Count 2.74 M/uL (4.7-6.1); White Blood Count 4.66 K/uL (4.8-10.8)
--- NOTE | 2018-10-26 20:12 | XRay Report ---
XR chest 1V portable CLINICAL HISTORY: 58 years-old Male presenting with weakness. TECHNIQUE: Portable upright AP view of the chest was obtained. COMPARISON: . FINDINGS: The left internal jugular central venous catheter has been removed. Atherosclerosis of the aortic arc h. Cardiac silhouette enlarged. Low lung volumes with hypoventilatory changes. Resulting pulmonary va scular prominence. Bronchial wall cuffing suggested. No focal opacity. Trace bilateral pleural effusi ons. No pneumothorax. Osseous structures normal. Upper abdomen normal. IMPRESSION: 1. Low lung volumes with hypoventilatory changes including prominence of the cardiac silhouette and vasculature. Superimposed volume overload/congestive change is difficult to exclude. 2. Trace bilateral pleural effusions. Electronically signed by: Tomas Dave M.D. 10/26/2018 8:11 PM
[2018-10-26 20:15] LABS: INR 1.6 (0.9-1.1); Prothrombin Time 15.6 Seconds (9.0-12.0)
[2018-10-26 20:25] LABS: Mean Platelet Volume 9.9 fL (7.4-10.4); Platelet Count 65 K/uL (130-400)
[2018-10-26 20:26] LABS: Basophils # (auto) 0.04 K/uL (0-0.2); Basophils % (auto) 0.9 %; Eosinophils % (auto) 4.3 %; Immature Granulocytes # (auto) 0.02 K/uL (0.00-0.02); Immature Granulocytes % (auto) 0.4 %; Lymphocytes # (auto) 0.75 K/uL (1.2-3.4); Lymphocytes % (auto) 16.1 %; Monocytes % (auto) 17.2 %; Neutrophils # (auto) 2.85 K/uL (1.4-6.5); Neutrophils % (auto) 61.1 %
[2018-10-26 20:36] LABS: Albumin Globulin Ratio 0.6 (0.9-2); Albumin Level 2.7 gm/dl (3.4-5.0); BUN Creatinine Ratio 18.7 (10-20); Bilirubin,Total 4.9 mg/dl (0.2-1); Calcium 8.1 mg/dl (8.5-10.1); Creatinine Clr Calc Pharmacy 74.5 ml/min; Est GFR (African American) 72.7; Est GFR (Non-African American) 62.7; Globulin 4.2 gm/dl (2.5-4.0); Potassium 6.3 mmol/L (3.5-5.1); Total Protein 6.9 gm/dl (6.4-8.2)
--- NOTE | 2018-10-26 20:36 | CT Scan Report ---
CT head/brain wo con CLINICAL HISTORY: 58 years-old Male presenting with ams. TECHNIQUE: Multidetector CT imaging of the head was performed without the use of intravenous contrast . IV contrast: None. One or more dose lowering techniques were used consistent with the principles of ALARA (as low as reasonably achievable), including automatic exposure control, mA or kV adjustment t o individual patient size, and/or use of iterative reconstruction. COMPARISON: 06/05/2018. CT DOSE (mGy.cm): The estimated cumulative dose is 614.27 mGy.cm. FINDINGS: Lumite Injector topogram: Unremarkable. Ventricles and sulci normal in size. No hemorrhage. Brain parenchyma normal in appearance with preser maddie hernandez-white differentiation. No acute territorial infarct. No mass effect or midline shift. No ext ra-axial fluid collection. Paranasal sinuses and mastoid air cells clear. Calvarium intact. IMPRESSION: 1. No acute intracranial abnormality. Electronically signed by: Tomas Dave M.D. 10/26/2018 8:34 PM
[2018-10-26] MEDS ORDERED: LACTULOSE 200 GM, WATER, STERILE IRRIG 700 ML, BARCODE IDENTIFIER 0 EA PR STA (20:52)
--- NOTE | 2018-10-26 21:23 | Emergency Department Note ---
Entered by Miguelito Cruz acting as a scribe for John Glover DO History of Present Illness General Chief complaint: Altered Mental Status Stated complaint: CONFUSION, VOMITING Time Seen by Provider: 10/26/18 19:39 Source: police Mode of arrival: ambulatory History of Present Illness Provider complaint: Altered mental status Onset (ago): hour(s) 8 Location: head Quality: + other (altered mental status) Associated symptoms: no nausea/vomiting (+vomiting and -nausea ) Patient is a 58 year old male who presents himself to ER with complains of altered mental status which started today. The patient is a prisoner and is accompanied with two police officers. Police officers stated he has had resent liver failure which could be causing some of the symptoms which he is experiencing. Officers stated the patient did exhibit vomiting prior as well. HPI is limited due to the patient�s altered mental status. Home Medications Home Medications Medication Instructions Recorded Confirmed Type bumetanide 2 tab PO DAILY 05/14/18 10/26/18 History cyanocobalamin (vitamin B-12) 1,000 mcg PO DAILY 05/14/18 10/26/18 History [Vitamin B-12] gabapentin 800 mg PO TID 05/14/18 10/26/18 History ciprofloxacin HCl [Cipro] 500 mg PO DAILY 07/04/18 10/26/18 History lactulose 60 g PO BID 08/06/18 10/26/18 History pantoprazole 40 mg PO QAM #30 tab 08/19/18 10/26/18 Rx potassium chloride [Klor-Con M20] 40 meq PO BID #60 tab 08/19/18 10/26/18 Rx sennosides [Senokot] 17.2 mg PO HS #30 tab 08/19/18 10/26/18 Rx furosemide 40 mg PO DAILY 09/02/18 10/26/18 History magnesium oxide 400 mg PO DAILY 09/02/18 10/26/18 History paroxetine HCl 10 mg PO DAILY 09/02/18 10/26/18 History metolazone 2.5 mg PO 2XWK 09/12/18 10/26/18 History nadolol 20 mg PO DAILY 10/26/18 10/26/18 History oxycodone [OxyContin] 20 mg PO TID PRN 10/26/18 10/26/18 History Allergies Allergy/AdvReac Type Severity Reaction Status Date / Time ibuprofen Allergy Unknown Unknown Verified 10/26/18 19:40 tetanus toxoid, adsorbed Allergy Unknown Unknown Verified 10/26/18 19:40 pork derived (porcine) AdvReac Unknown Unknown Verified 10/26/18 19:40 Pork/Porcine Containing AdvReac Unknown Unknown Verified 10/26/18 19:40 Products Past Med/Surg History Medical History Ascites Esophageal varices in cirrhosis no active bleeding noted, although scant thin red in NGT -- will follow closely protonix IV Hepatic cirrhosis due to chronic hepatitis C infection MRSA (methicillin resistant Staphylococcus aureus) (Acute) Right knee meniscal tear (Acute) Ascites Cirrhosis of liver HTN (hypertension) Hepatitis C Surgical History H/O mastectomy (Acute) Social History Current Living Situation: Other Current Living Situation Comment: [facility] Feels Safe at Home: Yes Smoking Status: Former smoker Tobacco Type: cigarettes Second Hand Exposure: Yes ("the other inmates") Hx Alcohol Use: No Hx Substance Use: No Beliefs That Will Affect Care: None Preferred Language: [place]i Review of Systems Unobtainable due to mental health condition ROS is limited due to the patient�s altered mental status. Physical Exam Vital Signs Vital Signs - 24 hr 10/26/18 18:26 Temperature 36.6 C Temperature Source Oral Sepsis Recent Fever Within 48 Hours No Sepsis New/Unexplained Change in Mental Status Yes Sepsis Action Taken by Nursing No Action Required Pulse Rate 79 Pulse Rhythm Regular Pulse Strength Normal Respiratory Rate 18 Respiratory Effort / Characteristics Non-Labored Spontaneous Respiratory Depth Normal Respiratory Pattern Regular Blood Pressure 127/75 Blood Pressure Mean 92 Blood Pressure Position Lying Pulse Oximetry 99 Oxygen Delivery Method Room Air CONSTITUTIONAL/VITAL SIGNS: Reviewed / noted above. GENERAL: Non-toxic in appearance. INTEGUMENTARY: Warm, dry, and [place]. HEAD: Normocephalic. EYES: without scleral icterus or trauma. ENT/OROPHARYNX: clear and moist. LYMPHADENOPATHY/NECK: Is supple without lymphadenopathy or meningismus. RESPIRATORY: Lungs clear and equal. CARDIOVASCULAR: Regular rate and rhythm. GI/ABDOMEN: Soft and nontender. No organomegaly or pulsatile mass. No rebound or guarding. Normal bowel sounds. Distended EXTREMITIES: Warm and well perfused. BACK: No CVA tenderness. NEUROLOGICAL: Patient does not respond verbally, opens eyes spontaneously, does not follow commands MUSCULOSKELETAL: Normally developed with good muscle tone. Course 1940: Past medical records reviewed. The patient was evaluated in room C10, and a complete history and physical examination were performed. 2100: I discussed the treatment plan with the patient and they verbalized agreement. The patient will be admitted under the care of Dr. Bhatti, Hospitalist, [facility] [place]. Medical Decision Making Differential Diagnosis Chest pain: Acute coronary syndrome, pulmonary embolus, aortic dissection, musculoskeletal pain, pneumonia, pleural effusion, pneumothorax Medical Records Attestation: I reviewed the patient's medical records. Home Medications Current Medication List: was personally reviewed by me Laboratory Data Attestation: I reviewed the patient's lab results. Result diagrams: 10/26/18 19:30 10/26/18 19:30 Lab Results 10/26/18 10/26/18 10/26/18 Range/Units 19:30 19:30 19:30 WBC 4.66 L (4.8-10.8) K/uL RBC 2.74 L (4.7-6.1) M/uL Hgb 9.8 L (14.0-18.0) g/dL Hct 29.0 L (42-52) % MCV 105.8 H (80-100) fL MCH 35.8 H (25-34) pg MCHC 33.8 (32-36) g/dL RDW Std Deviation 65.7 H (36.4-46.3) fL RDW Coeff of Glendy 17.0 H (11.5-14.5) % Plt Count 65 L (130-400) K/uL MPV 9.9 (7.4-10.4) fL Immature Gran % (Auto) 0.4 % Neut % (Auto) 61.1 % Lymph % (Auto) 16.1 % [place] % (Auto) 17.2 % Eos % (Auto) 4.3 % Baso % (Auto) 0.9 % Immature Gran # (Auto) 0.02 (0.00-0.02) K/uL Neut # (Auto) 2.85 (1.4-6.5) K/uL Lymph # (Auto) 0.75 L (1.2-3.4) K/uL [place] # (Auto) 0.80 H (0.11-0.59) K/uL Eos # (Auto) 0.20 (0-0.5) K/uL Baso # (Auto) 0.04 (0-0.2) K/uL PT 15.6 H (9.0-12.0) Seconds INR 1.6 H (0.9-1.1) Sodium 134 L (136-145) mmol/L Potassium 6.3 H* (3.5-5.1) mmol/L Chloride 108 H (98-107) mmol/L Carbon Dioxide 21 (21-32) mmol/L Anion Gap 5.0 (3-11) BUN 24 H (7-18) mg/dl Creatinine 1.27 (0.6-1.4) mg/dl Est Cr Clr Drug Dosing 74.5 ml/min Est GFR ( Amer) 72.7 Est GFR (Non-Af Amer) 62.7 BUN/Creatinine Ratio 18.7 (10-20) Glucose 121 H (70-99) mg/dl Lactate (0.4-2.0) mmol/L Calcium 8.1 L (8.5-10.1) mg/dl Total Bilirubin 4.9 H (0.2-1) mg/dl AST 43 H (15-37) U/L ALT 24 (12-78) U/L Alkaline Phosphatase 180 H (45-117) U/L Ammonia (11-32) umol/L Troponin I (0-0.045) ng/ml Total Protein 6.9 (6.4-8.2) gm/dl Albumin 2.7 L (3.4-5.0) gm/dl Globulin 4.2 H (2.5-4.0) gm/dl Albumin/Globulin Ratio 0.6 L (0.9-2) 10/26/18 10/26/18 10/26/18 Range/Units 19:30 19:30 20:40 WBC (4.8-10.8) K/uL RBC (4.7-6.1) M/uL Hgb (14.0-18.0) g/dL Hct (42-52) % MCV (80-100) fL MCH (25-34) pg MCHC (32-36) g/dL RDW Std Deviation (36.4-46.3) fL RDW Coeff of Glendy (11.5-14.5) % Plt Count (130-400) K/uL MPV (7.4-10.4) fL Immature Gran % (Auto) % Neut % (Auto) % Lymph % (Auto) % [place] % (Auto) % Eos % (Auto) % Baso % (Auto) % Immature Gran # (Auto) (0.00-0.02) K/uL Neut # (Auto) (1.4-6.5) K/uL Lymph # (Auto) (1.2-3.4) K/uL [place] # (Auto) (0.11-0.59) K/uL Eos # (Auto) (0-0.5) K/uL Baso # (Auto) (0-0.2) K/uL PT (9.0-12.0) Seconds INR (0.9-1.1) Sodium (136-145) mmol/L Potassium (3.5-5.1) mmol/L Chloride (98-107) mmol/L Carbon Dioxide (21-32) mmol/L Anion Gap (3-11) BUN (7-18) mg/dl Creatinine (0.6-1.4) mg/dl Est Cr Clr Drug Dosing ml/min Est GFR ( Amer) Est GFR (Non-Af Amer) BUN/Creatinine Ratio (10-20) Glucose (70-99) mg/dl Lactate 1.3 (0.4-2.0) mmol/L Calcium (8.5-10.1) mg/dl Total Bilirubin (0.2-1) mg/dl AST (15-37) U/L ALT (12-78) U/L Alkaline Phosphatase (45-117) U/L Ammonia 260.0 H (11-32) umol/L Troponin I < 0.015 (0-0.045) ng/ml Total Protein (6.4-8.2) gm/dl Albumin (3.4-5.0) gm/dl Globulin (2.5-4.0) gm/dl Albumin/Globulin Ratio (0.9-2) Imaging Data Attestation: I personally reviewed and interpreted this imaging study as follows : Radiologist's Impression: Radiology results as stated below per my review and the radiologist's interpretation: CT head/brain wo con CLINICAL HISTORY: 58 years-old Male presenting with ams. TECHNIQUE: Multidetector CT imaging of the head was performed without the use of intravenous contrast. IV contrast: None. One or more dose lowering techniques were used consistent with the principles of ALARA (as low as reasonably achievable), including automatic exposure control, mA or kV adjustment to individual patient size, and/or use of iterative reconstruction. COMPARISON: 06/05/2018. CT DOSE (mGy.cm): The estimated cumulative dose is 614.27 mGy.cm. FINDINGS: Nib Finisher topogram: Unremarkable. Ventricles and sulci normal in size. No hemorrhage. Brain parenchyma normal in appearance with preserved hernandez-white differentiation. No acute territorial infarct. No mass effect or midline shift. No extra-axial fluid collection. Paranasal sinuses and mastoid air cells clear. Calvarium intact. IMPRESSION: 1. No acute intracranial abnormality. Electronically signed by: Tomas Dave M.D. 10/26/2018 8:34 PM XR chest 1V portable CLINICAL HISTORY: 58 years-old Male presenting with weakness. TECHNIQUE: Portable upright AP view of the chest was obtained. COMPARISON: . FINDINGS: The left internal jugular central venous catheter has been removed. Atherosclerosis of the aortic arch. Cardiac silhouette enlarged. Low lung volumes with hypoventilatory changes. Resulting pulmonary vascular prominence. Bronchial wall cuffing suggested. No focal opacity. Trace bilateral pleural effusions. No pneumothorax. Osseous structures normal. Upper abdomen normal. IMPRESSION: 1. Low lung volumes with hypoventilatory changes including prominence of the cardiac silhouette and vasculature. Superimposed volume overload/congestive change is difficult to exclude. 2. Trace bilateral pleural effusions. Electronically signed by: Tomas Dave M.D. 10/26/2018 8:11 PM ECG Data Attestation: I personally reviewed and interpreted this ECG as follows: Rate (beats per minute): 78 Rhythm: sinus rhythm Findings: no ST elevation and no ectopy Blood Pressure Blood Pressure Findings: Normal blood pressure Blood Pressure Disposition: did not require urgent referral MDM Narrative This is a 58-year-old male who presents to the ED with a chief complaint of altered mental status. The patient is a local prisoner. He has had increased confusion recently and sent here for evaluation. The patient has a history of hepatitis C and cirrhosis as well as elevated ammonia levels. He has not been taking his lactulose. Today's ammonia level is 260. His troponin was negative. INR is 1.6. He is not on Coumadin. Potassium was 6.3. He has no acute EKG changes suggesting hyper kalemia. His EKG shows a normal sinus rhythm at a rate of 78. CT scan of the brain was negative for acute disease. Chest x-ray was negative for acute disease. The patient was given rectal lactulose. He was given NSS IV. He will be seen by the hospitalist for further evaluation and care. Impression & Plan Altered mental state, Hyperammonemia, Acute hyperkalemia Discharge Plan Visit Data Chief Complaint: Altered Mental Status Stated Complaint: CONFUSION, VOMITING ED Provider: John Glover Discharge Problem: Altered mental state, Hyperammonemia, Acute hyperkalemia Patient Disposition: Being Evaluated by Hospitalist Forms Stand Alone Forms: [facility] Prescriptions Prescriptions: No Action lactulose 10 gram/15 mL (15 mL) Solution 60 g PO BID RF: 0 sennosides [Senokot] 8.6 mg Tablet 17.2 mg PO HS Qty: 30 RF: 0 potassium chloride [Klor-Con M20] 20 mEq Tablet,Er Particles/Crystals 40 meq PO BID Qty: 60 RF: 0 pantoprazole 40 mg Tablet,Delayed Release (Dr/Ec) 40 mg PO QAM Qty: 30 RF: 0 cyanocobalamin (vitamin B-12) [Vitamin B-12] 1,000 mcg Tablet 1,000 mcg PO DAILY RF: 0 gabapentin 800 mg Tablet 800 mg PO TID RF: 0 bumetanide 1 mg Tablet 2 tab PO DAILY RF: 0 ciprofloxacin HCl [Cipro] 500 mg Tablet 500 mg PO DAILY RF: 0 furosemide 40 mg Tablet 40 mg PO DAILY RF: 0 paroxetine HCl 10 mg Tablet 10 mg PO DAILY RF: 0 magnesium oxide 400 mg Capsule 400 mg PO DAILY RF: 0 metolazone 2.5 mg Tablet 2.5 mg PO 2XWK RF: 0 nadolol 20 mg Tablet 20 mg PO DAILY RF: 0 oxycodone [OxyContin] 20 mg Tablet,Oral Only,Ext.Rel.12 Hr 20 mg PO TID PRN (Reason: Pain) RF: 0 Referrals Referrals: SCI,Hong [Primary Care Provider] - The scribe's documentation has been prepared under my direction and personally reviewed by me in its entirety. I confirm that the note above accurately reflects all work, treatment, procedures, and medical decision making performed by me.
[2018-10-26] MEDS ORDERED: SODIUM CHLORIDE 0.9% 1000ML 500 ML IV ONE (21:27)
--- NOTE | 2018-10-26 23:34 | History & Physical Report ---
Date of Service October 26, 2018 Assessment & Plan (1) Hepatic encephalopathy: Hepatic encephalopathy/hyperammonemia/hepatic cirrhosis due to chronic hepatitis C infection-- Ammonia level on admission 260. Patient received lactulose enema while in the ED. We will increase lactulose from 60 mg p.o. twice daily to 3 times daily. Follow daily CBC with differential, chemistry profile, magnesium and ammonia levels. NPO except essential medications. Change Cipro from 500 mg p.o. daily to 400 mg IV every 12 hours. Add Flagyl 500 mg IV every 8 hours Present on Admission?: Yes (2) Hepatic cirrhosis due to chronic hepatitis C infection: See above Present on Admission?: Yes (3) Hyperammonemia: See above Present on Admission?: Yes (4) Coagulopathy: INR 1.6 upon admission. His baseline is been 1.6-1.8 over the past several months. Give vitamin K 10 mg IV x1 Present on Admission?: Yes (5) Anasarca: Hold oral bumetanide. Give albumin 25 g with Lasix 40 mg IV every 12 hours. Patient has been undergoing ultrasound-guided paracentesis by radiology approximately weekly over the past several months, with each time having 7 L of fluid removed. Present on Admission?: Yes History of Present Illness Chief Complaint: Patient is brought to the emergency department from [facility] with report of confusion, nausea and vomiting. Primary Care Provider: MAYUR Zepeda The patient is a 58-year-old male resident of [facility] with past medical history including hepatic encephalopathy, SBP, hyperammonemia, hepatitic cirrhosis due to chronic hepatitis C infection who presents to the emergency department with progressively worsening confusion, nausea and vomiting. Emergency department workup included laboratories revealing an ammonia level 260 , for which he received a lactulose enema. He was then referred for evaluation for admission. Allergies Allergy/AdvReac Type Severity Reaction Status Date / Time ibuprofen Allergy Unknown Unknown Verified 10/26/18 19:40 tetanus toxoid, adsorbed Allergy Unknown Unknown Verified 10/26/18 19:40 pork derived (porcine) AdvReac Unknown Unknown Verified 10/26/18 19:40 Pork/Porcine Containing AdvReac Unknown Unknown Verified 10/26/18 19:40 Products Home Medications Home Medications Medication Instructions Recorded Confirmed Type bumetanide 2 tab PO DAILY 05/14/18 10/26/18 History cyanocobalamin (vitamin B-12) 1,000 mcg PO DAILY 05/14/18 10/26/18 History [Vitamin B-12] gabapentin 800 mg PO TID 05/14/18 10/26/18 History ciprofloxacin HCl [Cipro] 500 mg PO DAILY 07/04/18 10/26/18 History lactulose 60 g PO BID 08/06/18 10/26/18 History pantoprazole 40 mg PO QAM #30 tab 08/19/18 10/26/18 Rx potassium chloride [Klor-Con M20] 40 meq PO BID #60 tab 08/19/18 10/26/18 Rx sennosides [Senokot] 17.2 mg PO HS #30 tab 08/19/18 10/26/18 Rx furosemide 40 mg PO DAILY 09/02/18 10/26/18 History magnesium oxide 400 mg PO DAILY 09/02/18 10/26/18 History paroxetine HCl 10 mg PO DAILY 09/02/18 10/26/18 History metolazone 2.5 mg PO 2XWK 09/12/18 10/26/18 History nadolol 20 mg PO DAILY 10/26/18 10/26/18 History oxycodone [OxyContin] 20 mg PO TID PRN 10/26/18 10/26/18 History Past Med/Surg History Medical History Ascites Esophageal varices in cirrhosis no active bleeding noted, although scant thin red in NGT -- will follow closely protonix IV Hepatic cirrhosis due to chronic hepatitis C infection MRSA (methicillin resistant Staphylococcus aureus) (Acute) Right knee meniscal tear (Acute) Ascites Cirrhosis of liver HTN (hypertension) Hepatitis C Surgical History H/O mastectomy (Acute) Social History Current Living Situation: Other Current Living Situation Comment: [facility] Other Information That Helps Us Care for You: No Feels Safe at Home: Yes Smoking Status: Never smoker Tobacco Type: cigarettes Second Hand Exposure: Yes ("the other inmates") Hx Alcohol Use: No Hx Substance Use: No Beliefs That Will Affect Care: None Preferred Language: Yi Communication Ability: Effective Security Compliance Specialist Required: No Review of Systems Review of systems is somewhat limited due to patient's lethargy. Physical Exam 2 Vital Signs (Past 24 Hours): Last Vital Signs Temp 36.6 C 10/26/18 18:26 Pulse 82 10/26/18 21:30 Resp 16 10/26/18 21:30 BP 109/73 10/26/18 21:00 Pulse Ox 98 10/26/18 21:20 Physical Exam: The patient is lethargic, but does answer questions, normocephalic and atraumatic, lying in bed and in no acute distress. HEENT--PERRL, EOMI, icteric sclera, mucous membranes and oropharynx dry. Neck--supple. No JVD. No bruits. Thyroid normal, trachea midline, no adenopathy. Heart--normal S1 and S2. No murmurs, rubs or gallops. Lungs--clear bilaterally, no respiratory distress, no accessory muscle use. Abdomen--normal bowel sounds and soft. Nontender. Distended and tympanitic. Extremities--no cyanosis or clubbing. 2+ bilateral pretibial pitting edema. There are good distal pulses b/l. Dermatologic--jaundiced Neurologic--cranial nerves II through XII grossly intact. Rheumatologic--limited exam Psychiatric--lethargic Results & Data Laboratory Results Laboratory Results WBC 4.66 K/uL (4.8-10.8) L 10/26/18 19:30 RBC 2.74 M/uL (4.7-6.1) L 10/26/18 19:30 Hgb 9.8 g/dL (14.0-18.0) L 10/26/18 19:30 Hct 29.0 % (42-52) L 10/26/18 19:30 MCV 105.8 fL (80-100) H 10/26/18 19:30 MCH 35.8 pg (25-34) H 10/26/18 19:30 MCHC 33.8 g/dL (32-36) 10/26/18 19:30 RDW Std Deviation 65.7 fL (36.4-46.3) H 10/26/18 19:30 RDW Coeff of Glendy 17.0 % (11.5-14.5) H 10/26/18 19:30 Plt Count 65 K/uL (130-400) L 10/26/18:30 MPV 9.9 fL (7.4-10.4) 10/26/18 19:30 Immature Gran % (Auto) 0.4 % 10/26/18 19:30 Neut % (Auto) 61.1 % 10/26/18 19:30 Lymph % (Auto) 16.1 % 10/26/18 19:30 Early % (Auto) 17.2 % 10/26/18:30 Eos % (Auto) 4.3 % 10/26/18:30 Baso % (Auto) 0.9 % 10/26/18:30 Immature Gran # (Auto) 0.02 K/uL (0.00-0.02) 10/26/18: Neut # (Auto) 2.85 K/uL (1.4-6.5) 10/26/18:30 Lymph # (Auto) 0.75 K/uL (1.2-3.4) L 10/26/18:30 Early # (Auto) 0.80 K/uL (0.11-0.59) H 10/26/18:30 Eos # (Auto) 0.20 K/uL (0-0.5) 10/26/18: Baso # (Auto) 0.04 K/uL (0-0.2) 10/26/18: PT 15.6 Seconds (9.0-12.0) H 10/26/18:30 INR 1.6 (0.9-1.1) H 10/26/18: Sodium 134 mmol/L (136-145) L 10/26/18: Potassium 6.3 mmol/L (3.5-5.1) H* 10/26/18: Chloride 108 mmol/L (98-107) H 10/26/18: Carbon Dioxide 21 mmol/L (21-32) 10/26/18: Anion Gap 5.0 (3-11) 10/26/18:30 BUN 24 mg/dl (7-18) H 10/26/18:30 Creatinine 1.27 mg/dl (0.6-1.4) 10/26/18: Est Cr Clr Drug Dosing 74.5 ml/min 10/26/18 19:30 Est GFR ( Amer) 72.7 10/26/18 19:30 Est GFR (Non-Af Amer) 62.7 10/26/18 19:30 BUN/Creatinine Ratio 18.7 (10-20) 10/26/18 19:30 Glucose 121 mg/dl (70-99) H 10/26/18 19:30 Lactate 1.3 mmol/L (0.4-2.0) 10/26/18 20:40 Calcium 8.1 mg/dl (8.5-10.1) L 10/26/18:30 Total Bilirubin 4.9 mg/dl (0.2-1) H 10/26/18:30 AST 43 U/L (15-37) H 10/26/18:30 ALT 24 U/L (12-78) 10/26/18 19:30 Alkaline Phosphatase 180 U/L (45-117) H 10/26/18: Ammonia 260.0 umol/L (11-32) H 10/26/18:30 Troponin I < 0.015 ng/ml (0-0.045) 10/26/18 19:30 Total Protein 6.9 gm/dl (6.4-8.2) 10/26/18:30 Albumin 2.7 gm/dl (3.4-5.0) L 10/26/18:30 Globulin 4.2 gm/dl (2.5-4.0) H 10/26/18:30 Albumin/Globulin Ratio 0.6 (0.9-2) L 10/26/18 19:30 Urine Color Dark Yellow 10/27/18 00:00 Urine Appearance Clear (Clear) 10/27/18 00:00 Urine pH 6.0 (4.5-7.5) 10/27/18 00:00 Ur Specific [place] 1.023 (1.000-1.030) 10/27/18 00:00 Urine Protein Negative (Negative) 10/27/18 00:00 Urine Glucose (UA) Negative (Negative) 10/27/18 00:00 Urine Ketones Negative (Negative) 10/27/18 00:00 Urine Blood 3+ (Negative) H 10/27/18 00:00 Urine Nitrite Positive (Negative) H 10/27/18 00:00 Urine Bilirubin 1+ (Negative) H 10/27/18 00:00 Urine Urobilinogen Negative (Negative) 10/27/18 00:00 Ur Leukocyte Esterase Negative (Negative) 10/27/18 00:00 Urine WBC (Auto) 1-5 /hpf (0-5) 10/27/18 00:00 Urine RBC (Auto) >30 /hpf (0-4) H 10/27/18 00:00 U Hyaline Cast (Auto) 5-10 /lpf (0-5) H 10/27/18 00:00 U Epithel Cells (Auto) 20-30 /lpf (0-5) H 10/27/18 00:00 Urine Bacteria (Auto) Negative (Negative) 10/27/18 00:00 Diagnostic Findings [place], [place] [phone] XRay Report Patient: JACKLYN NUNEZ [id number] Date: 10/26/18 MR#: [id number]: MAYUR ZEPEDA Acct ID:[id number]: [address] [place] [address] DR Date: 1960[facility] Zip: [place] [address] Age: 58Location: ED Sex: M Room/Bed: Att Phy: Diagnosis: CONFUSION, VOMITING Parisa Phy: SCI BennerService Date: 10/26/18 Fam Phy: Interpreting Phy: Tomas Dave MD Admit Phy: Ordering Phy: John Glover D.O. cc: ~ XR chest 1V portable CLINICAL HISTORY: 58 years-old Male presenting with weakness. TECHNIQUE: Portable upright AP view of the chest was obtained. COMPARISON: . FINDINGS: The left internal jugular central venous catheter has been removed. Atherosclerosis of the aortic arch. Cardiac silhouette enlarged. Low lung volumes with hypoventilatory changes. Resulting pulmonary vascular prominence. Bronchial wall cuffing suggested. No focal opacity. Trace bilateral pleural effusions. No pneumothorax. Osseous structures normal. Upper abdomen normal. IMPRESSION: 1. Low lung volumes with hypoventilatory changes including prominence of the cardiac silhouette and vasculature. Superimposed volume overload/congestive change is difficult to exclude. 2. Trace bilateral pleural effusions. Electronically signed by: Tomas Dave M.D. 10/26/2018 8:11 PM Dictated: 10/26/182008 Transcribed: 10/26/182008 [place], [place] [phone] CT Scan Report Patient: JACKLYN NUNEZ [id number] Date: 10/26/18 MR#: [id number]: MAYUR DUANE Acct ID:[id number]: [address] Date: 1960[facility] Zip: [place] [address] Age: 58Location: ED Sex: M Room/Bed: Att Phy: Diagnosis: CONFUSION, VOMITING Parisa Phy: SCI BennerService Date: 10/26/18 Fam Phy: Interpreting Phy: Tomas Dave MD Admit Phy: Ordering Phy: John Glover D.O. cc: ~ CT head/brain wo con CLINICAL HISTORY: 58 years-old Male presenting with ams. TECHNIQUE: Multidetector CT imaging of the head was performed without the use of intravenous contrast. IV contrast: None. One or more dose lowering techniques were used consistent with the principles of ALARA (as low as reasonably achievable), including automatic exposure control, mA or kV adjustment to individual patient size, and/or use of iterative reconstruction. COMPARISON: 06/05/2018. CT DOSE (mGy.cm): The estimated cumulative dose is 614.27 mGy.cm. FINDINGS: Faculty Administrator topogram: Unremarkable. Ventricles and sulci normal in size. No hemorrhage. Brain parenchyma normal in appearance with preserved hernandez-white differentiation. No acute territorial infarct. No mass effect or midline shift. No extra-axial fluid collection. Paranasal sinuses and mastoid air cells clear. Calvarium intact. IMPRESSION: 1. No acute intracranial abnormality. Electronically signed by: Tomas Dave M.D. 10/26/2018 8:34 PM Dictated: 10/26/182031 Transcribed: 10/26/182031 [facility] [place] [phone] Ultrasound Report Patient: JACKLYN NUNEZ [id number] Date: 10/24/18 MR#: [id number]: MAYUR DUANE Acct ID:[id number]: [address] Date: 1960[facility] Zip: [place] [address] Age: 58Location: ASU Sex: M Room/Bed: Att Phy: Eva Paulino D.O.Diagnosis: ASCITES *W/POST ALBUMIN Parisa Phy: SCI BennerService Date: 10/24/18 Fam Phy: Interpreting Phy: Jesús Ellington MD Admit Phy: Ordering Phy: Eva Paulino D.O. cc: ~ PARACENTESIS UNDER ULTRASOUND GUIDANCE CLINICAL HISTORY: ascites COMPARISON STUDY: 10/17/2018 FINDINGS: The risks, benefits, and alternatives to the procedure were discussed with the patient. Written informed consent was obtained. Following real-time ultrasound localization, the skin was prepped and draped. Following local anesthesia with Xylocaine, the sheath paracentesis needle was inserted and approximately 7 liters of straw-colored fluid was removed by vacuum suction. A right lower quadrant approach was utilized. The patient tolerated the procedure well and left the department in satisfactory condition. IMPRESSION: Successful ultrasound-guided paracentesis with removal of approximately 7 liters of ascitic fluid. Electronically signed by: Jesús Ellington M.D. 10/24/2018 12:23 PM Dictated: 10/24/18 1223 Transcribed: 10/24/18 1223 Medications Administered Home Medications Medication Instructions Recorded Confirmed bumetanide 2 tab PO DAILY 05/14/18 10/26/18 cyanocobalamin (vitamin B-12) 1,000 mcg PO DAILY 05/14/18 10/26/18 [Vitamin B-12] gabapentin 800 mg PO TID 05/14/18 10/26/18 ciprofloxacin HCl [Cipro] 500 mg PO DAILY 07/04/18 10/26/18 lactulose 60 g PO BID 08/06/18 10/26/18 furosemide 40 mg PO DAILY 09/02/18 10/26/18 magnesium oxide 400 mg PO DAILY 09/02/18 10/26/18 paroxetine HCl 10 mg PO DAILY 09/02/18 10/26/18 metolazone 2.5 mg PO 2XWK 09/12/18 10/26/18 nadolol 20 mg PO DAILY 10/26/18 10/26/18 oxycodone [OxyContin] 20 mg PO TID PRN 10/26/18 10/26/18 Previous Rx's Medication Instructions Recorded pantoprazole 40 mg PO QAM #30 tab 08/19/18 potassium chloride [Klor-Con M20] 40 meq PO BID #60 tab 08/19/18 sennosides [Senokot] 17.2 mg PO HS #30 tab 08/19/18 Code Status & VTE Plan Code Status Full code VTE Prophylaxis Plan VTE Prophylaxis will be ordered: Yes
[2018-10-27] MEDS ORDERED: ALBUT/IPRATROP 3MG/0.5MG NEB 3 ML VIAL NEB PRN (00:34)
[2018-10-27] MEDS ORDERED: LACTULOSE SYRUP 10 GM/15 ML BTL 473 ML PO SCH (00:34)
[2018-10-27] MEDS ORDERED: ONDANSETRON INJ 2 MG/ML 2 ML VIAL IV PRN (00:34)
[2018-10-27] MEDS: ALBUMIN 25% 50 ML with FUROSEMIDE 40 MG IV SCH ×2 (00:51→13:22)
[2018-10-27 01:06] LABS: Appearance Urine Clear (Clear); Bacteria Urine Automated Negative (Negative); Blood Urine 3+ (Negative); Color Urine Dark Yellow; Epithelial Cell Urine Auto 20-30 /lpf (0-5); Glucose Urine UA Negative (Negative); Ketones Urine Negative (Negative); Leukocyte Esterase Urine Negative (Negative); Nitrite Urine Positive (Negative); Protein Urine Negative (Negative); RBC Urine Automated >30 /hpf (0-4); Specific Gravity Urine 1.023 (1.000-1.030); Urobilinogen Urine Negative (Negative)
[2018-10-27 01:18] LABS: Bilirubin Urine 1+ (Negative)
[2018-10-27 01:20] LABS: Ictotest Urine Positive (Negative)
[2018-10-27] MEDS ORDERED: PHYTONADIONE 10 MG in SODIUM CHLORIDE 0.9% 50 ML IV ONE (04:22)
[2018-10-27] MEDS: CIPROFLOXACIN 400 MG/200 ML BAG IV SCH ×2 (05:29→16:56)
[2018-10-27] MEDS: metroNIDAZOLE 500 MG/100 ML BAG IV SCH ×3 (05:57→22:16)
[2018-10-27 07:09] LABS: Hematocrit (blood only) 24.9 % (42-52); Hemoglobin 8.5 g/dL (14.0-18.0); Mean Corpuscular Hgb Conc 34.1 g/dL (32-36); RDW Coefficient of Variation 17.1 % (11.5-14.5); RDW Standard Deviation 66.3 fL (36.4-46.3); Red Blood Count 2.35 M/uL (4.7-6.1); White Blood Count 3.86 K/uL (4.8-10.8)
[2018-10-27 07:16] LABS: Mean Platelet Volume 9.5 fL (7.4-10.4); Platelet Count 52 K/uL (130-400)
[2018-10-27 07:18] LABS: INR 1.7 (0.9-1.1); Partial Thromboplastin Ratio 1.6; Partial Thromboplastin Time 42.5 Seconds (21.0-31.0); Prothrombin Time 16.7 Seconds (9.0-12.0)
[2018-10-27 07:41] LABS: Anisocytosis Present; Basophils # (auto) 0.02 K/uL (0-0.2); Basophils % (auto) 0.5 %; Echinocytes 1+; Eosinophils # (auto) 0.14 K/uL (0-0.5); Eosinophils % (auto) 3.6 %; Immature Granulocytes # (auto) 0.01 K/uL (0.00-0.02); Immature Granulocytes % (auto) 0.3 %; Lymphocytes # (auto) 0.65 K/uL (1.2-3.4); Lymphocytes % (auto) 16.8 %; Monocytes # (auto) 0.73 K/uL (0.11-0.59); Monocytes % (auto) 18.9 %; Neutrophils # (auto) 2.31 K/uL (1.4-6.5); Neutrophils % (auto) 59.9 %; Platelet Estimate Decreased (Normal)
[2018-10-27 07:44] LABS: Albumin Globulin Ratio 0.6 (0.9-2); Albumin Level 2.5 gm/dl (3.4-5.0); Bilirubin,Total 5.1 mg/dl (0.2-1); Calcium 8.1 mg/dl (8.5-10.1); Creatinine Clr Calc Pharmacy 73.5 ml/min; Est GFR (African American) 72.7; Est GFR (Non-African American) 62.7; Potassium 4.6 mmol/L (3.5-5.1); Total Protein 6.5 gm/dl (6.4-8.2)
[2018-10-27] MEDS ORDERED: INFLUENZA VIRUS QUAD VACCINE 0.5 ML SYR IM ONE (08:30)
[2018-10-27] MEDS ORDERED: INFLUENZA ADMINISTRATION CHARGE ONE (08:30)
[2018-10-27] MEDS: LACTULOSE SYRUP 10 GM/15 ML BTL 473 ML PO SCH ×3 (09:08→20:24)
[2018-10-27] MEDS ORDERED: OXYCODONE HCL IR 5 MG TAB (IMMEDIATE RELEASE) PO PRN (09:23)
[2018-10-27] MEDS: OXYCODONE HCL IR 5 MG TAB (IMMEDIATE RELEASE) PO PRN ×3 (10:50→22:26)
[2018-10-27] MEDS: PANTOprazole 40 MG in SYRINGE 0 ML IV SCH (10:50)
[2018-10-27] MEDS ORDERED: OXYCODONE HCL IR 5 MG TAB (IMMEDIATE RELEASE) PO STA (18:27)
--- NOTE | 2018-10-27 22:01 | Hospitalist Progress Note ---
Date of Service October 27, 2018 Assessment & Plan (1) Hepatic encephalopathy: Hepatic encephalopathy/hyperammonemia/hepatic cirrhosis due to chronic hepatitis C infection-- Ammonia level on admission 260. Patient received lactulose enema while in the ED. We will increase lactulose from 60 mg p.o. twice daily to 3 times daily. Follow daily CBC with differential, chemistry profile, magnesium and ammonia levels. Ammonia level did improve today. No longer necessary to monitor his ammonia level. Will continue to monitor his CBC however. will resume diet today/ will continnue Cipro 400 mg IV every 12 hours and Flagyl 500 mg IV every 8 hours (2) Hepatic cirrhosis due to chronic hepatitis C infection: See above (3) Hyperammonemia: See above (4) Coagulopathy: INR 1.6 upon admission. His baseline is been 1.6-1.8 over the past several months. Give vitamin K 10 mg IV x1 (5) Anasarca: Hold oral bumetanide. Give albumin 25 g with Lasix 40 mg IV every 12 hours. Patient has been undergoing ultrasound-guided paracentesis by radiology approximately weekly over the past several months, with each time having 7 L of fluid removed. Diana consider tapping his abdomen Spent 35 minutes in management of patient. Subjective Patient reports feeling well. Patient continues to complain of hypogastric abdominal pain. Patient reports he has weekly abdominal paracenthesis. He gets these saturday. Patient rpeorts that he does not appear to be confused today. Physical Exam Vital Signs (Past 24 Hours): Last Vital Signs Temp 36.8 C 10/27/18 19:55 Pulse 109 H 10/27/18 19:55 Resp 18 10/27/18 19:55 BP 105/55 L 10/27/18 19:55 Pulse Ox 97 10/27/18 19:55 Physical Exam: The patient is no longer lethargic, normocephalic and atraumatic, lying in bed and in no acute distress. HEENT--PERRL, EOMI, icteric sclera, mucous membranes and oropharynx dry. Neck--supple. No JVD. No bruits. Thyroid normal, trachea midline, no adenopathy. Heart--normal S1 and S2. No murmurs, rubs or gallops. Lungs--clear bilaterally, no respiratory distress, no accessory muscle use. Abdomen--normal bowel sounds and soft. Nontender. Distended and tympanitic. Extremities--no cyanosis or clubbing. 2+ bilateral pretibial pitting edema. There are good distal pulses b/l. Dermatologic--jaundiced Neurologic--cranial nerves II through XII grossly intact. AA OX3.
[2018-10-28] MEDS: ALBUMIN 25% 50 ML with FUROSEMIDE 40 MG IV SCH ×2 (01:18→13:11)
[2018-10-28] MEDS: OXYCODONE HCL IR 5 MG TAB (IMMEDIATE RELEASE) PO PRN ×4 (04:45→23:50)
[2018-10-28] MEDS: CIPROFLOXACIN 400 MG/200 ML BAG IV SCH ×2 (04:45→16:25)
[2018-10-28] MEDS: metroNIDAZOLE 500 MG/100 ML BAG IV SCH ×3 (06:24→22:33)
[2018-10-28 07:27] LABS: Hematocrit (blood only) 22.4 % (42-52); Hemoglobin 7.6 g/dL (14.0-18.0); Mean Corpuscular Hgb Conc 33.9 g/dL (32-36); Mean Corpuscular Volume 103.7 fL (80-100); RDW Standard Deviation 64.4 fL (36.4-46.3); Red Blood Count 2.16 M/uL (4.7-6.1); White Blood Count 3.89 K/uL (4.8-10.8)
[2018-10-28 07:31] LABS: Platelet Count 49 K/uL (130-400)
[2018-10-28 07:37] LABS: INR 1.7 (0.9-1.1)
[2018-10-28 07:45] LABS: Basophils # (auto) 0.03 K/uL (0-0.2); Basophils % (auto) 0.8 %; Eosinophils # (auto) 0.28 K/uL (0-0.5); Eosinophils % (auto) 7.2 %; Immature Granulocytes # (auto) 0.01 K/uL (0.00-0.02); Immature Granulocytes % (auto) 0.3 %; Lymphocytes # (auto) 0.72 K/uL (1.2-3.4); Lymphocytes % (auto) 18.5 %; Monocytes % (auto) 23.1 %; Neutrophils # (auto) 1.95 K/uL (1.4-6.5); Neutrophils % (auto) 50.1 %
[2018-10-28 08:12] LABS: Albumin Level 2.5 gm/dl (3.4-5.0); BUN Creatinine Ratio 16.2 (10-20); Calcium 7.7 mg/dl (8.5-10.1); Creatinine Clr Calc Pharmacy 75.1 ml/min; Est GFR (African American) 74.9; Est GFR (Non-African American) 64.6; Magnesium 1.8 mg/dl (1.8-2.4)
[2018-10-28 08:15] LABS: Albumin Globulin Ratio 0.7 (0.9-2); Bilirubin,Total 4.4 mg/dl (0.2-1); Globulin 3.8 gm/dl (2.5-4.0); Total Protein 6.3 gm/dl (6.4-8.2)
[2018-10-28] MEDS: LACTULOSE SYRUP 10 GM/15 ML BTL 473 ML PO SCH ×3 (09:00→20:31)
[2018-10-28] MEDS: PANTOprazole 40 MG in SYRINGE 0 ML IV SCH (11:22)
[2018-10-28] MEDS: POTASSIUM CHLORIDE / WTR 10 MEQ/100 ML PLCT IV SCH ×3 (19:46→22:33)
--- NOTE | 2018-10-28 23:46 | Hospitalist Progress Note ---
Date of Service October 28, 2018 Assessment & Plan (1) Hepatic encephalopathy: Hepatic encephalopathy/hyperammonemia/hepatic cirrhosis due to chronic hepatitis C infection-- Ammonia level on admission 260 improved to less than 100. Patient received lactulose enema while in the ED. We will increase lactulose from 60 mg p.o. twice daily to 3 times daily. INR remains elevated, and hemoglobin has been decreasing. May need GI followup will repeat labs. Patient however not complaining of hemoptysis or melena Continue Cipro 400 mg IV every 12 hours. And Flagyl 500 mg IV every 8 hours (2) Hepatic cirrhosis due to chronic hepatitis C infection: See above (3) Hyperammonemia: See above (4) Coagulopathy: INR 1.6 upon admission. His baseline is been 1.6-1.8 over the past several months. 1.7 ON 10/28 (5) Anasarca: Hold oral bumetanide. Give albumin 25 g with Lasix 40 mg IV every 12 hours. WILL DISCONTINUE today. Patient has been undergoing ultrasound-guided paracentesis by radiology approximately weekly over the past several months, with each time having 7 L of fluid removed. will likely need a tap tomorrow. poor prognosis given his elevated INR. MELD score is 20. Spent 25 minutes in management of patient. Subjective Patient reports no complaints except for pain in the abdomen. He states it is from distention. Physical Exam Vital Signs (Past 24 Hours): Last Vital Signs Temp 36.7 C 10/28/18 15:34 Pulse 94 H 10/28/18 19:40 Resp 18 10/28/18 19:40 BP 106/65 10/28/18 19:40 Pulse Ox 95 10/28/18 19:40 Physical Exam: The patient is normocephalic and atraumatic, lying in bed and in no acute distress. HEENT--PERRL, EOMI, icteric sclera, mucous membranes and oropharynx dry. Neck--supple. No JVD. No bruits. Thyroid normal, trachea midline, no adenopathy. Heart--normal S1 and S2. No murmurs, rubs or gallops. Lungs--clear bilaterally, no respiratory distress, no accessory muscle use. Abdomen--normal bowel sounds and soft. Nontender. Distended and tympanitic. Extremities--no cyanosis or clubbing. 2+ bilateral pretibial pitting edema. There are good distal pulses b/l. Neurologic--cranial nerves II through XII grossly intact.
[2018-10-29] MEDS: CIPROFLOXACIN 400 MG/200 ML BAG IV SCH ×2 (04:30→16:30)
[2018-10-29] MEDS: OXYCODONE HCL IR 5 MG TAB (IMMEDIATE RELEASE) PO PRN ×3 (05:50→19:42)
[2018-10-29] MEDS: metroNIDAZOLE 500 MG/100 ML BAG IV SCH ×3 (05:50→21:07)
[2018-10-29 06:48] LABS: Hematocrit (blood only) 22.3 % (42-52); Hemoglobin 7.6 g/dL (14.0-18.0); Mean Corpuscular Hgb Conc 34.1 g/dL (32-36); Mean Corpuscular Volume 105.2 fL (80-100); RDW Coefficient of Variation 16.5 % (11.5-14.5); RDW Standard Deviation 64.2 fL (36.4-46.3); Red Blood Count 2.12 M/uL (4.7-6.1); White Blood Count 3.93 K/uL (4.8-10.8)
[2018-10-29 06:55] LABS: Mean Platelet Volume 9.1 fL (7.4-10.4); Platelet Count 48 K/uL (130-400)
[2018-10-29 07:11] LABS: INR 1.9 (0.9-1.1); Prothrombin Time 18.8 Seconds (9.0-12.0)
[2018-10-29 07:19] LABS: Basophils # (auto) 0.04 K/uL (0-0.2); Eosinophils # (auto) 0.17 K/uL (0-0.5); Eosinophils % (auto) 4.3 %; Giant Platelets 2+; Immature Granulocytes # (auto) 0.01 K/uL (0.00-0.02); Immature Granulocytes % (auto) 0.3 %; Lymphocytes # (auto) 0.73 K/uL (1.2-3.4); Lymphocytes % (auto) 18.6 %; Monocytes # (auto) 0.81 K/uL (0.11-0.59); Monocytes % (auto) 20.6 %; Neutrophils # (auto) 2.17 K/uL (1.4-6.5); Neutrophils % (auto) 55.2 %
[2018-10-29 07:32] LABS: Albumin Globulin Ratio 0.7 (0.9-2); Albumin Level 2.6 gm/dl (3.4-5.0); BUN Creatinine Ratio 15.7 (10-20); Bilirubin,Total 4.8 mg/dl (0.2-1); Calcium 7.6 mg/dl (8.5-10.1); Creatinine Clr Calc Pharmacy 84.4 ml/min; Est GFR (African American) 85.6; Est GFR (Non-African American) 73.8; Globulin 3.6 gm/dl (2.5-4.0); Magnesium 1.8 mg/dl (1.8-2.4); Potassium 3.2 mmol/L (3.5-5.1); Total Protein 6.2 gm/dl (6.4-8.2)
[2018-10-29] MEDS: LACTULOSE SYRUP 10 GM/15 ML BTL 473 ML PO SCH ×3 (07:52→21:03)
[2018-10-29] MEDS: PANTOprazole 40 MG in SYRINGE 0 ML IV SCH (11:09)
[2018-10-29] MEDS ORDERED: PHYTONADIONE 5 MG TAB PO STA (11:37)
[2018-10-29] MEDS: POTASSIUM CHLORIDE / WTR 10 MEQ/100 ML PLCT IV SCH ×3 (12:28→15:21)
[2018-10-29] MEDS ORDERED: LIDOCAINE 5% 1 PATCH TD SCH (14:30)
--- NOTE | 2018-10-29 15:08 | Ultrasound Report ---
ULTRASOUND GUIDED THERAPEUTIC AND DIAGNOSTIC PARACENTESIS CLINICAL HISTORY: Ascites. COMPARISON STUDY: Ultrasound guided paracentesis October 24, 2018. PROCEDURE: The risks, benefits, and alternatives to the procedure were discussed with the patient inc luding the risk of bleeding, infection and injury to adjacent structures. The patient agreed to the procedure and informed written consent was obtained. Following real-time ultrasound localization, the skin of the left lower quadrant was prepped and draped. Following local anesthesia with Xylocaine, t he sheath paracentesis needle was inserted and approximately 5.7 liters of straw-colored fluid was re moved by vacuum suction. The patient tolerated the procedure well and no immediate complications were evident. IMPRESSION: Ultrasound-guided paracentesis with removal of 5.7 liters of ascites. 1 L of ascites was sent to laboratory as ordered. Electronically signed by: Rohit Childs M.D. 10/29/2018 3:06 PM
--- NOTE | 2018-10-29 15:25 | Gastrointestinal Consultation ---
Date of Consultation October 29, 2018 Assessment & Plan (1) End stage liver disease: secondary to hep C wiht multiple problems hepatic encephalopathy--responded to increased lactulose--ordered cell count and culture of fluid to see if SBP explains, blood cultures neg so far anemia--no black nor bloody stools so do not feel endoscopic intervention warranted. He will likely be chronically heme pos if tested from portal gastropathy. He had recent EGD and will request report from [facility] at skilled nursing pancytopenia ---from portal HTN coagulopathy--worsening indicating more liver failure. 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 Do not know what prisoners are eligible for in terms of liver transplantation but short of that he will from his liver disease. History of Present Illness Reason for Consultation: anemia, ascites Requesting Physician: Adam Corona Attending Physician: Adam Corona History of Present Illness CC confusion on admit HPI Pt known to me from past admissions as well as recent OV 09/01/18. He is inmate at [facility]. He has succussfully treated hep C with last PCR in this chart 03/2018 neg. 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 His most recent hosp admit at [facility] was 08/06-08/19/18 for cellulitis at paracentesis site left abdomen with bacteremia. The patient states he had some prisoners willing to volunteer as partial liver donors for liver transplant but was informed prisoners not eligible to donate. He states he is not on any list for transplanatation. His last paracentesis was 7 L on 10/24/18 until today had paracentesis. He states he missed one dose of lactulose. He came to ER here 10/26/18 with confusion, n/v and ammonia of 260 which with lactulose enema and increased lactulose is down to 60 today. Hgb baseline around 8.5 has drifted to 7.6 today but patient denies black or bloody stools, no vomiting or coughing blood, no hematuria. His INR is worsening. Allergies Allergy/AdvReac Type Severity Reaction Status Date / Time ibuprofen Allergy Unknown Unknown Verified 02/24/19 19:40 tetanus toxoid, adsorbed Allergy Unknown Unknown Verified 10/26/18 19:40 pork derived (porcine) AdvReac Unknown Unknown Verified 10/26/18 19:40 Pork/Porcine Containing AdvReac Unknown Unknown Verified 10/26/18 19:40 Products Home Medications Home Medications Medication Instructions Recorded Confirmed Type bumetanide 2 tab PO DAILY 05/14/18 10/26/18 History cyanocobalamin (vitamin B-12) 1,000 mcg PO DAILY 05/14/18 10/26/18 History [Vitamin B-12] gabapentin 800 mg PO TID 05/14/18 10/26/18 History ciprofloxacin HCl [Cipro] 500 mg PO DAILY 07/04/18 10/26/18 History lactulose 60 g PO BID 08/06/18 10/26/18 History pantoprazole 40 mg PO QAM #30 tab 08/19/18 10/26/18 Rx potassium chloride [Klor-Con M20] 40 meq PO BID #60 tab 08/19/18 10/26/18 Rx sennosides [Senokot] 17.2 mg PO HS #30 tab 08/19/18 10/26/18 Rx furosemide 40 mg PO DAILY 09/02/18 10/26/18 History magnesium oxide 400 mg PO DAILY 09/02/18 10/26/18 History paroxetine HCl 10 mg PO DAILY 09/02/18 10/26/18 History metolazone 2.5 mg PO 2XWK 09/12/18 10/26/18 History nadolol 20 mg PO DAILY 10/26/18 10/26/18 History oxycodone [OxyContin] 20 mg PO TID PRN 10/26/18 10/26/18 History Patient History Medical History Ascites Esophageal varices in cirrhosis no active bleeding noted, although scant thin red in NGT -- will follow closely protonix IV Hepatic cirrhosis due to chronic hepatitis C infection MRSA (methicillin resistant Staphylococcus aureus) (Acute) Right knee meniscal tear (Acute) Ascites Cirrhosis of liver HTN (hypertension) Hepatitis C Surgical History H/O mastectomy (Acute) Social History Preferred Language: Albanian Communication Ability: Effective Dipper And Drier Required: No Beliefs That Will Affect Care: None Current Living Situation: Other Current Living Situation Comment: [facility] Other Information That Helps Us Care for You: No Feels Safe at Home: Yes Smoking Status: Never smoker Hx Alcohol Use: No Hx Substance Use: No Review of Systems see HPI. Otherwise 10 ROS neg. Physical Exam Vital Signs (Past 24 Hours): Last Vital Signs Temp 36.8 C 10/29/18 11:29 Pulse 90 10/29/18 11:29 Resp 18 10/29/18 11:29 BP 115/69 10/29/18 11:29 Pulse Ox 97 10/29/18 11:29 Constitutional: WD/WN, vitals as above Eyes: PERRL ENMT: external ear and nose normal, oropharynx normal Neck: normal visual inspection and trachea midline Respiratory: normal respiratory effort, lungs clear to auscultation Cardiovascular: Rate/Rhythm: regular rhythm bilateral edema Gastrointestinal (Abdomen): pos bs soft, mild distension from ascites, no guarding nor rebound Neurologic: PERRL, EOMI, accommodation nl, no face palsy, no dysarthria Psychiatric: A+Ox3, euthymic affect
[2018-10-29 16:11] LABS: Color Body Fluid YELLOW; Mononuclear WBC Body Fluid 93.1 %; Polynuclear WBC Body Fluid 6.9 %; RBC Body Fluid (A) < 3000 /uL; WBC Body Fluid (A) 126 /uL
[2018-10-29 16:12] LABS: Source Body Fluid PERITONEAL FLUID
--- NOTE | 2018-10-29 22:43 | Hospitalist Progress Note ---
Date of Service October 29, 2018 Assessment & Plan (1) Hepatic encephalopathy: Hepatic encephalopathy/hyperammonemia/hepatic cirrhosis due to chronic hepatitis C infection-- Ammonia level on admission 260 improved to less than 100. Patient received lactulose enema while in the ED. We will increase lactulose from 60 mg p.o. twice daily to 3 times daily. INR remains elevated, and hemoglobin has been decreasing. will consult GI. Awaiting input. terminal operator prognosis is poor. Patient however not complaining of hemoptysis or melena Continue Cipro 400 mg IV every 12 hours. And Flagyl 500 mg IV every 8 hours (2) Hepatic cirrhosis due to chronic hepatitis C infection: See above (3) Hyperammonemia: See above (4) Coagulopathy: INR 1.6 upon admission. His baseline is been 1.6-1.8 over the past several months. 1.9 ON 10/29 (5) Anasarca: Patient has been undergoing ultrasound-guided paracentesis by radiology approximately weekly over the past several months, with each time having 7 L of fluid removed. will do paracenthesis today. poor prognosis given his elevated INR. MELD score is 20. Spent 35 minutes in management of patient. Subjective Patient reports no complaints except for pain in the abdomen. He is asking for more pain medicine. Physical Exam Vital Signs (Past 24 Hours): Last Vital Signs Temp 36.6 C 10/29/18 17:41 Pulse 99 H 10/29/18 17:41 Resp 18 10/29/18 17:41 BP 112/69 10/29/18 17:41 Pulse Ox 99 10/29/18 17:41 Physical Exam: The patient is normocephalic and atraumatic, lying in bed and in no acute distress. HEENT--PERRL, EOMI, icteric sclera, mucous membranes and oropharynx dry. Neck--supple. No JVD. No bruits. Thyroid normal, trachea midline, no adenopathy. Heart--normal S1 and S2. No murmurs, rubs or gallops. Lungs--clear bilaterally, no respiratory distress, no accessory muscle use. Abdomen--normal bowel sounds and soft. Nontender. Distended. Extremities--no cyanosis or clubbing. 2+ bilateral pretibial pitting edema. There are good distal pulses b/l. Neurologic--cranial nerves II through XII grossly intact.
[2018-10-30] MEDS: OXYCODONE HCL IR 5 MG TAB (IMMEDIATE RELEASE) PO PRN ×2 (04:36→10:41)
[2018-10-30] MEDS: CIPROFLOXACIN 400 MG/200 ML BAG IV SCH (04:39)
[2018-10-30] MEDS: metroNIDAZOLE 500 MG/100 ML BAG IV SCH (05:54)
[2018-10-30 07:49] LABS: Hematocrit (blood only) 23.5 % (42-52); Hemoglobin 8.2 g/dL (14.0-18.0); Mean Corpuscular Hgb Conc 34.9 g/dL (32-36); Mean Corpuscular Volume 103.5 fL (80-100); RDW Coefficient of Variation 16.4 % (11.5-14.5); RDW Standard Deviation 62.4 fL (36.4-46.3); Red Blood Count 2.27 M/uL (4.7-6.1); White Blood Count 3.69 K/uL (4.8-10.8)
[2018-10-30 08:03] LABS: INR 1.9 (0.9-1.1); Prothrombin Time 18.8 Seconds (9.0-12.0)
[2018-10-30 08:22] LABS: Albumin Level 2.6 gm/dl (3.4-5.0); BUN Creatinine Ratio 17.2 (10-20); Calcium 7.9 mg/dl (8.5-10.1); Creatinine Clr Calc Pharmacy 99.6 ml/min; Est GFR (African American) 104.6; Est GFR (Non-African American) 90.3; Magnesium 1.9 mg/dl (1.8-2.4); Potassium 3.2 mmol/L (3.5-5.1)
[2018-10-30 08:25] LABS: Albumin Globulin Ratio 0.7 (0.9-2); Bilirubin,Total 4.8 mg/dl (0.2-1); Globulin 3.7 gm/dl (2.5-4.0); Mean Platelet Volume 9.5 fL (7.4-10.4); Platelet Count 51 K/uL (130-400); Total Protein 6.3 gm/dl (6.4-8.2)
[2018-10-30 08:27] LABS: Basophils # (auto) 0.03 K/uL (0-0.2); Basophils % (auto) 0.8 %; Eosinophils # (auto) 0.21 K/uL (0-0.5); Eosinophils % (auto) 5.7 %; Immature Granulocytes # (auto) 0.01 K/uL (0.00-0.02); Immature Granulocytes % (auto) 0.3 %; Lymphocytes # (auto) 0.56 K/uL (1.2-3.4); Lymphocytes % (auto) 15.2 %; Monocytes # (auto) 0.61 K/uL (0.11-0.59); Monocytes % (auto) 16.5 %; Neutrophils # (auto) 2.27 K/uL (1.4-6.5); Neutrophils % (auto) 61.5 %; RBC Morphology Unremarkable
[2018-10-30] MEDS: LACTULOSE SYRUP 10 GM/15 ML BTL 473 ML PO SCH ×2 (08:30→13:38)
[2018-10-30] MEDS: PANTOprazole 40 MG in SYRINGE 0 ML IV SCH (10:49)
[2018-10-30] MEDS ORDERED: LIDOCAINE 5% 1 PATCH TD SCH (11:00)
[2018-10-30] MEDS: POTASSIUM CHLORIDE / WTR 10 MEQ/100 ML PLCT IV SCH ×3 (12:16→14:42)
[2018-10-30] MEDS ORDERED: metroNIDAZOLE 500 MG TAB PO SCH (14:00)
--- NOTE | 2018-10-30 14:45 | Gastroenterology Progress Note ---
Date of Service October 30, 2018 Assessment & Plan (1) End stage liver disease: secondary to hep C with multiple problems hepatic encephalopathy--responded to increased lactulose--added Xifaxan so if [facility] covers he might be able to reduce dose of lactulose anemia--no black nor bloody stools so do not feel endoscopic intervention warranted. He will likely be chronically heme pos if tested from portal gastropathy. He had recent EGD and will request report from [facility] (nothing in chart as of now) pancytopenia ---from portal HTN coagulopathy--worsening indicating more liver failure. 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 Discussed he needs to speak with [facility] MD and see if he is eligible for liver transplant from [facility] standpoint and if so needs evaluation by liver transplant center. Pt is at his baseline so could be DCed from GI standpoint. Subjective CC f/u hepatic encephalopathy HPI Pt alert. Complains of diarrhea secondary to lactulose and chronic abd pain. Respiratory: no dyspnea Cardiovascular: no chest pain Physical Exam Vital Signs (Past 24 Hours): Last Vital Signs Temp 36.5 C 10/30/18 08:06 Pulse 96 H 10/30/18 08:06 Resp 16 10/30/18 08:06 BP 109/66 10/30/18 08:06 Pulse Ox 97 10/30/18 08:06 Constitutional: WD/WN, vitals as above ENMT: external ear and nose normal, oropharynx normal Neck: normal visual inspection and trachea midline Respiratory: normal respiratory effort, lungs clear to auscultation Cardiovascular: Rate/Rhythm: regular rhythm Gastrointestinal (Abdomen): pos bs, soft, mild distension from ascites, no guarding nor rebound Psychiatric: A+Ox3, euthymic affect
[2018-10-30] MEDS ORDERED: OXYCODONE HCL IR 5 MG TAB (IMMEDIATE RELEASE) PO STA (16:35)
[2018-10-30] MEDS ORDERED: RIFAXIMIN 550 MG TABLET PO SCH (21:00)
[2018-10-30] MEDS ORDERED: CIPROFLOXACIN 500 MG TAB PO SCH (21:00)
--- NOTE | 2018-10-31 08:56 | Discharge Summary ---
Date of Service November 04, 2018 Admission HPI Per Admitting Provider The patient is a 58-year-old male resident of [facility] with past medical history including hepatic encephalopathy, SBP, hyperammonemia, hepatitic cirrhosis due to chronic hepatitis C infection who presents to the emergency department with progressively worsening confusion, nausea and vomiting. Emergency department workup included laboratories revealing an ammonia level 260, for which he received a lactulose enema. He was then referred for evaluation for admission. Discharge Data Consultations 10/26/18 20:56 ED Decision to Admit Stat 10/27/18 00:34 Consult Case Management - Discharge Planning Routine 10/29/18 11:20 Consult Gastroenterology Routine
--- NOTE | 2018-11-03 09:47 | Discharge Summary ---
Date of Service Oct 30, 2018 Admission HPI Per Admitting Provider The patient is a 58-year-old male resident of [facility] with past medical history including hepatic encephalopathy, SBP, hyperammonemia, hepatitic cirrhosis due to chronic hepatitis C infection who presents to the emergency department with progressively worsening confusion, nausea and vomiting. Emergency department workup included laboratories revealing an ammonia level 260, for which he received a lactulose enema. He was then referred for evaluation for admission. Principal Diagnosis Hepatic encephalopathy Discharge Exam The patient is normocephalic and atraumatic, lying in bed and in no acute distress. HEENT--PERRL, EOMI, icteric sclera, mucous membranes and oropharynx dry. Neck--supple. No JVD. No bruits. Thyroid normal, trachea midline, no adenopathy. Heart--normal S1 and S2. No murmurs, rubs or gallops. Lungs--clear bilaterally, no respiratory distress, no accessory muscle use. Abdomen--normal bowel sounds and soft. Nontender. Distended. Extremities--no cyanosis or clubbing. 2+ bilateral pretibial pitting edema. There are good distal pulses b/l. Neurologic--cranial nerves II through XII grossly intact. Discharge Data Allergies Allergy/AdvReac Type Severity Reaction Status Date / Time ibuprofen Allergy Unknown Unknown Verified 10/26/18 19:40 tetanus toxoid, adsorbed Allergy Unknown Unknown Verified 10/26/18 19:40 pork derived (porcine) AdvReac Unknown Unknown Verified 10/26/18 19:40 Pork/Porcine Containing AdvReac Unknown Unknown Verified 10/26/18 19:40 Products Consultations 10/26/18 20:56 ED Decision to Admit Stat 10/27/18 00:34 Consult Case Management - Discharge Planning Routine 10/29/18 11:20 Consult Gastroenterology Routine Ordered Studies 10/26/18 19:46 CT head/brain wo con Stat 10/29/18 11:25 US paracentesis abd w/image Routine Hospital Course (1) Hepatic encephalopathy: Hepatic encephalopathy/hyperammonemia/hepatic cirrhosis due to chronic hepatitis C infection-- Ammonia level on admission 260 improved to less than 100. Patient received lactulose enema while in the ED. We will increase lactulose from 60 mg p.o. twice daily to 3 times daily. INR remains elevated, and hemoglobin has been steady. He did not require any blood transfusions during hospital stay. Appreciate GI input. manager terminal prognosis is poor. Patient however not complaining of hemoptysis or melena Continue Cipro 400 mg IV every 12 hours. And Flagyl 500 mg IV every 8 hours Will discharge on oral flagyl and cipro Overall poor short and manager terminal prognosis. Discussed he needs to speak with [facility] MD and see if he is eligible for liver transplant from [facility] standpoint and if so needs evaluation by liver transplant center. Pt is at his baseline so could be DCed from GI standpoint. (2) Hepatic cirrhosis due to chronic hepatitis C infection: See above (3) Hyperammonemia: See above (4) Coagulopathy: INR 1.6 upon admission. His baseline is been 1.6-1.8 over the past several months. 1.9 ON 10/29 (5) Anasarca: Patient has been undergoing ultrasound-guided paracentesis by radiology approximately weekly over the past several months, with each time having 7 L of fluid removed. will do paracenthesis today. poor prognosis given his elevated INR. MELD score is 20. Total Time Total Time Spent Total Time Spent (In Minutes): 32 Total Time Includes: Examination of the Patient, Discharge Planning and Medication Reconciliation Discharge Plan Discharge Items Patient Disposition: Home - Self-Care Reason For Visit: hepatic encephalopathy Discharge Diagnosis: hepatic encephalopathy Discharge Goals: Decrease discomfort Activity: Resume your previous activity Non-emergency contact: Primary Care Provider Call non-emergency contact if: you have any medication questions Diet: Low Sodium (2gm) Addtl Provider Instructions: If XIFAXAN is not covered by [facility], then increase lactulose to three times a day. Patient will need to talk to [facility] physician in regards to transplant. Patient is end stage liver disease and he requires a transplant. He may also require draining his belly on saturday. He had 4 liters removed. Recommend rechecking bmp in 5 days to check for potassium level. Prescriptions: New metronidazole 500 mg Tablet 500 mg PO TID Qty: 20 RF: 0 ciprofloxacin HCl 500 mg Tablet 500 mg PO BID Qty: 13 RF: 0 Xifaxan 550 mg Tablet 550 mg PO BID Qty: 60 RF: 0 Continued lactulose 10 gram/15 mL (15 mL) Solution 60 g PO BID RF: 0 sennosides [Senokot] 8.6 mg Tablet 17.2 mg PO HS Qty: 30 RF: 0 potassium chloride [Klor-Con M20] 20 mEq Tablet,Er Particles/Crystals 40 meq PO BID Qty: 60 RF: 0 pantoprazole 40 mg Tablet,Delayed Release (Dr/Ec) 40 mg PO QAM Qty: 30 RF: 0 cyanocobalamin (vitamin B-12) [Vitamin B-12] 1,000 mcg Tablet 1,000 mcg PO DAILY RF: 0 gabapentin 800 mg Tablet 800 mg PO TID RF: 0 bumetanide 1 mg Tablet 2 tab PO DAILY RF: 0 paroxetine HCl 10 mg Tablet 10 mg PO DAILY RF: 0 magnesium oxide 400 mg Capsule 400 mg PO DAILY RF: 0 metolazone 2.5 mg Tablet 2.5 mg PO 2XWK RF: 0 nadolol 20 mg Tablet 20 mg PO DAILY RF: 0 oxycodone [OxyContin] 20 mg Tablet,Oral Only,Ext.Rel.12 Hr 20 mg PO TID PRN (Reason: Pain) RF: 0 Discontinued ciprofloxacin HCl [Cipro] 500 mg Tablet 500 mg PO DAILY RF: 0 furosemide 40 mg Tablet 40 mg PO DAILY RF: 0 Stand-Alone Forms: [facility] Discharge Orders: Discharge Order (Routine); Ordered 10/30/18 Ordered By: Adam Corona Admission Data Admit Date/Time: 10/26/18 23:34 Attending Provider: Adam Corona Admit Provider: Domingo Bhatti Primary Care Provider: Hong MERCHANT Other Providers: Domingo Bhatti ; Oscar Starr Service: Telemetry Other Interventions: Discharge Summary Assessment (RN) Last Done: 10/30/18 18:07 DC Date/Time DO NOT enter until pt leaves facility: 10/30/18 19:24
== END 2018-10-30 19:24 | disposition home or self-care (01) | DRG 441 ==
LOC: ED 19:11 → 2S 23:34 → SUATTDRO 23:34 → 2S 10-27 00:07 → 2W 10-29 14:51